=== PATIENT | female | born 1945 | race Caucasian/White ===

== ENCOUNTER 2018-06-10 13:25 | Emergency (ER) | payer MEDICAID, MEDICARE, OTHER ==
[~2018-06-10] VITALS: Ht 152.4 cm; Wt 66.2 kg
[2018-06-10] MEDS ORDERED: ONDANSETRON 4 MG/2 ML (SDV) Z0FRAN ONE (13:31)
[2018-06-10] MEDS ORDERED: morphine PF (DURAMORPH) 10 MG/10 ML AMP IV ONE (14:00)
[2018-06-10] MEDS ORDERED: NS IV 1000 ML 1,000 ML IV SCH ×2 (14:00→15:45)
[2018-06-10] MEDS ORDERED: ONDANSETRON 4 MG/2 ML (SDV) Z0FRAN IVP ONE ×2 (14:00→14:15)
[2018-06-10] MEDS ORDERED: morphine INJ 10 MG/ML 1ML (SYR OR VIAL) ONE (14:02)
[2018-06-10] MEDS ORDERED: morphine INJ 10 MG/ML 1ML (SYR OR VIAL) IVP STA ×2 (14:03→17:13)
[2018-06-10 14:10] LABS: BASOPHILS % (AUTO) 0 % (0-10); EOSINOPHILS % (AUTO) 0 % (0-10); HEMATOCRIT 42 % (35-52); HEMOGLOBIN 13.6 G/DL (11.5-16.0); LYMPHOCYTES # (AUTO) 1.3 X 10^3 (1.0-4.0); LYMPHOCYTES % (AUTO) 10 % (12-44); MEAN CORPUSCULAR HEMOGLOBIN 31 PG (25-34); MEAN CORPUSCULAR HGB CONC 32 G/DL (32-36); MEAN CORPUSCULAR VOLUME 94 FL (80-99); MEAN PLATELET VOLUME 11.1 FL (7.4-10.4); MONOCYTES # (AUTO) 0.6 X 10^3 (0.0-1.0); MONOCYTES % (AUTO) 4 % (0-12); NEUTROPHILS % (AUTO) 85 % (42-75); PLATELET COUNT 356 10^3/uL (130-400); RED CELL DISTRIBUTION WIDTH 13.6 % (10.0-14.5); WHITE BLOOD COUNT 12.9 10^3/uL (4.3-11.0)
[2018-06-10 14:24] LABS: BUN/CREATININE RATIO 11; CALCIUM 10.6 MG/DL (8.5-10.1); CARBON DIOXIDE 16 MMOL/L (21-32); CHLORIDE 96 MMOL/L (98-107); CREATININE SERUM 0.72 MG/DL (0.60-1.30); GFR ESTIMATED > 60; GLUCOSE 159 MG/DL (70-105); SODIUM 137 MMOL/L (135-145)
[2018-06-10 14:25] LABS: LIPASE 23 U/L (8-78)
--- NOTE | 2018-06-10 14:45 | ED GI ---
General Chief Complaint: Abdominal/GI Problems Stated Complaint: VOMITING Nursing Triage Note: Patient reports nausea, vomiting, diarrhea, and generalized aches since yesterday evening. She states she recently completed a course of antibiotics for a UTI. Sepsis Screen: No Definite Risk Source of Information: Patient Exam Limitations: No Limitations History of Present Illness Date Seen by Provider: Jun 10, 2018 Time Seen by Provider: 13:10 Initial Comments Patient is a 72-year-old female presents with intermittent abdominal pain, nausea vomiting with diarrhea of the past 24 hours. Patient has vomited multiple times today and has had loose stool stools. Reports generally fatigue, weakness, dizziness, lightheadedness, body aches chills. Denies fever. No hematemesis, coffee-ground emesis, blood in stools or dark tarry stools. Recently completed antibiotics for treatment of urinary tract infection. Denies dysuria at this time. Patient also reports exacerbation of chronic back pain from vomiting. No history of kidney stones. No other acute symptoms or complaints. Timing/Duration: 24 Hours Severity/Quality: Moderate Location: Unknown (LOWER) Radiation: No Radiation Activities at Onset: Activity Modifying Factors: Improves With Vomiting Associated Symptoms: Back Pain Allergies and Home Medications Allergies Coded Allergies: No Known Drug Allergies (Unverified , 06/10/18) Patient Home Medication List Home Medication List Reviewed: Yes Review of Systems Review of Systems Constitutional: see HPI EENTM: See HPI Respiratory: See HPI Cardiovascular: See HPI Gastrointestinal: See HPI Genitourinary: See HPI Musculoskeletal: see HPI Skin: see HPI Endocrine: See HPI Hematologic/Lymphatic: See HPI All Other Systems Reviewed Negative Unless Noted: Yes Past Wmwakxz-Xtfeik-Ssgdnn Hx Patient Social History Alcohol Use: Rarely Uses Alcohol Beverage of Choice: Other Recreational Drug Use: Yes Recent Foreign Travel: No Contact w/Someone Who Travel: No Recent Infectious Disease Expo: No Physical Exam Vital Signs Vital Signs - First Documented 06/10/18 13:52 Temp 97.5 Pulse 75 Resp 14 B/P (MAP) 159/74 (102) Pulse Ox 98 O2 Delivery Room Air Capillary Refill : Less Than 3 Seconds Height/Weight/BMI Height: 5'0" Weight: 146lbs. oz. 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, no motor/sensory deficits, oriented x 3 Skin: normal color Progress/Results/Core Measures Results/Orders Lab Results Laboratory Tests Test 06/10/18 13:39 06/10/18 15:15 Range/Units White Blood Count 12.9 H 4.3-11.0 10^3/uL Red Blood Count 4.45 4.35-5.85 10^6/uL Hemoglobin 13.6 11.5-16.0 G/DL Hematocrit 42 35-52 % Mean Corpuscular Volume 94 80-99 FL Mean Corpuscular Hemoglobin 31 25-34 PG Mean Corpuscular Hemoglobin Concent 32 32-36 G/DL Red Cell Distribution Width 13.6 10.0-14.5 % Platelet Count 356 130-400 10^3/uL Mean Platelet Volume 11.1 H 7.4-10.4 FL Neutrophils (%) (Auto) 85 H 42-75 % Lymphocytes (%) (Auto) 10 L 12-44 % Monocytes (%) (Auto) 4 0-12 % Eosinophils (%) (Auto) 0 0-10 % Basophils (%) (Auto) 0 0-10 % Neutrophils # (Auto) 11.0 H 1.8-7.8 X 10^3 Lymphocytes # (Auto) 1.3 1.0-4.0 X 10^3 Monocytes # (Auto) 0.6 0.0-1.0 X 10^3 Eosinophils # (Auto) 0.0 0.0-0.3 10^3/uL Basophils # (Auto) 0.0 0.0-0.1 10^3/uL Sodium Level 137 135-145 MMOL/L Potassium Level 5.0 3.6-5.0 MMOL/L Chloride Level 96 L 98-107 MMOL/L Carbon Dioxide Level 16 L 21-32 MMOL/L Anion Gap 25 H 5-14 MMOL/L Blood Urea Nitrogen 8 7-18 MG/DL Creatinine 0.72 0.60-1.30 MG/DL Estimat Glomerular Filtration Rate > 60 BUN/Creatinine Ratio 11 Glucose Level 159 H 70-105 MG/DL Calcium Level 10.6 H 8.5-10.1 MG/DL Troponin T 6 <=10 NG/L Lipase 23 8-78 U/L Urine Color YELLOW Urine Clarity CLEAR Urine pH 6.5 5-9 Urine Specific [place] 1.015 L 1.016-1.022 Urine Protein 2+ H NEGATIVE Urine Glucose (UA) NEGATIVE NEGATIVE Urine Ketones 1+ H NEGATIVE Urine Nitrite NEGATIVE NEGATIVE Urine Bilirubin NEGATIVE NEGATIVE Urine Urobilinogen 0.2 NORMAL MG/DL Urine Leukocyte Esterase NEGATIVE NEGATIVE Urine RBC (Auto) NEGATIVE NEGATIVE Urine RBC 0-2 /HPF Urine WBC 0-2 /HPF Urine Squamous Epithelial Cells 2-5 /HPF Urine Crystals NONE /LPF Urine Bacteria FEW H /HPF Urine Casts NONE /LPF Urine Mucus SMALL H /LPF Urine Culture Indicated NO My Orders Orders - KATHERINE HERRERA DO Ondansetron Injection (Zofran Injectio (06/10/18 13:31) Cbc With Automated Diff (06/10/18 13:55) Basic Metabolic Panel (06/10/18 13:55) Lipase (06/10/18 13:55) Ua Culture If Indicated (06/10/18 13:55) Ns Iv 1000 Ml (Sodium Chloride 0.9%) (06/10/18 14:00) Ondansetron Injection (Zofran Injectio (06/10/18 14:00) Morphine Injection (Morphine Injection (06/10/18 14:03) Ondansetron Injection (Zofran Injectio (06/10/18 14:15) Morphine Injection (Morphine Injection (06/10/18 14:02) Ct Abdomen/Pelvis W (06/10/18 14:46) Iohexol Injection (Omnipaque 350 Mg/Ml 1 (06/10/18 15:00) Received Contrast (Hold Metformin- Contr (06/10/18 15:00) Sodium Chloride Flush (Catheter Flush Sy (06/10/18 15:00) Ns (Ivpb) (Sodium Chloride 0.9% Ivpb Bag (06/10/18 15:00) Troponin T (06/10/18 15:39) Famotidine Injection (Pepcid Injection) (06/10/18 15:45) Ns Iv 1000 Ml (Sodium Chloride 0.9%) (06/10/18 15:45) Ng/Feeding Tube Insertertion (06/10/18 16:39) Medications Given in ED Current Medications Medications Dose Ordered Sig/Shaylee Route Start Time Stop Time Status Last Admin Dose Admin Famotidine 20 mg ONCE ONCE IVP 06/10/18 15:45 06/10/18 15:46 DC 06/10/18 16:10 20 MG Iohexol 100 ml ONCE ONCE IV 06/10/18 15:00 06/10/18 15:08 DC 06/10/18 15:34 100 ML Ondansetron HCl 4 mg ONCE ONCE IVP 06/10/18 14:00 06/10/18 14:01 DC 06/10/18 14:10 4 MG Ondansetron HCl 4 mg ONCE ONCE IVP 06/10/18 14:15 06/10/18 14:16 DC 06/10/18 14:10 4 MG Sodium Chloride 10 ml NEEDED PRN IV 06/10/18 15:00 06/10/18 15:34 10 ML Sodium Chloride 100 ml ONCE ONCE IV 06/10/18 15:00 06/10/18 15:08 DC 06/10/18 15:35 60 ML Vital Signs/I&O 06/10/18 13:52 Temp 97.5 Pulse 75 Resp 14 B/P (MAP) 159/74 (102) Pulse Ox 98 O2 Delivery Room Air Blood Pressure Mean: 102 Departure Communication (Admissions) CT finder's indicative of acute small bowel obstruction. NG tube placed. Dr. Cary salesperson [employer] for [facility] accepts patient to [facility] facility. NG tube to placed prior to departure. Impression Primary Impression: Small bowel obstruction Disposition: XFER SHT-TRM HOSP Condition: Stable Transfer Method of Transfer: EMS Departure-Patient Inst. Referrals: DIDI DE LA CRUZ MD (PCP/Family) Primary Care Physician KATHERINE HERRERA DO Jun 10, 2018 14:45
[2018-06-10] MEDS ORDERED: HOLD METFORMIN - RECEIVED CONTRAST 20 ML VIAL IV SCH (15:00)
[2018-06-10] MEDS ORDERED: CATHETER FLUSH 10 ML SYR IV PRN (15:00)
[2018-06-10] MEDS ORDERED: NS 100 ML (IVPB) BAG IV ONE (15:00)
[2018-06-10] MEDS ORDERED: IOHEXOL 350 MG/ML 100 ML (OMNIPAQUE 350) VIAL IV ONE (15:00)
[2018-06-10] MEDS ORDERED: FAMOTIDINE 20MG/2ML IV (PEPCID) IVP ONE (15:45)
[2018-06-10 15:51] LABS: BILIRUBIN,URINE NEGATIVE (NEGATIVE); CLARITY,URINE CLEAR; COLOR,URINE YELLOW; GLUCOSE, URINE (UA) NEGATIVE (NEGATIVE); KETONES,URINE 1+ (NEGATIVE); LEUKOCYTE ESTERASE ,URINE NEGATIVE (NEGATIVE); NITRITE,URINE NEGATIVE (NEGATIVE); PH,URINE 6.5 (5-9); PROTEIN,URINE 2+ (NEGATIVE); UROBILINOGEN,URINE 0.2 MG/DL (NORMAL)
[2018-06-10 15:52] LABS: BACTERIA,URINE FEW /HPF; RBC,URINE 0-2 /HPF; WBC,URINE 0-2 /HPF
--- NOTE | 2018-06-10 16:09 | Diagnostic Imaging Report ---
PROCEDURE: CT abdomen and pelvis with contrast. TECHNIQUE: Multiple contiguous axial images were obtained through the abdomen and pelvis after administration of intravenous contrast. Auto Exposure Controls were utilized during the CT exam to meet ALARA standards for radiation dose reduction. INDICATION: Upper abdominal pain and vomiting. COMPARISON: no prior studies are available for comparison. FINDINGS: The lung bases are clear. No discrete liver mass is identified. The gallbladder is surgically absent. No biliary ductal dilatation is seen. The pancreas and spleen are unremarkable. No adrenal mass is detected. Left kidney is unremarkable. There is some cortical scarring involving the right kidney which also contains a tiny low-density, too small to characterize but most likely a cyst. Aorta is calcified but nonaneurysmal. No central retroperitoneal or mesenteric lymphadenopathy is seen. There is moderate fluid-filled distention involving small bowel loops in the central abdomen. There does appear to be transition to normal caliber bowel loops at the level of the mid jejunum. The focal transition appears to be in the midline of the mid pelvis, exact etiology indeterminate. No free fluid or fluid collection is seen. There is no free air. The colon is decompressed. There appear to be postsurgical changes in the sigmoid. The partially filled urinary bladder is unremarkable. IMPRESSION: Findings consistent with small bowel obstruction with focal transition in the region of the mid jejunum at the midline of the mid pelvis. No free air, fluid collection or abscess is detected. Dictated by: Dictated on workstation # [id number]
--- NOTE | 2018-06-10 16:50 | NUR ---
Patient requests to be transferred to the [facility] as it would be closer to her daughter who lives in [place].
[2018-06-10] MEDS ORDERED: LIDOCAINE UROJET 2% GEL 10 ML PKG ONE (16:57)
--- NOTE | 2018-06-10 17:45 | NUR ---
2 unsuccessful attempts at NG tube placement, patient refuses further attempts at this time. Dr. Lane notified.
[2018-06-10 18:05] VITALS: BP 145/82
== END 2018-06-10 18:13 | disposition short-term general hospital (02) ==
LOC: EDUNIT# 13:25 → ER FS 13:27
DX: K56.609 Unspecified intestinal obstruction, unspecified as to partial versus complete obstruction (principal); Z87.440 Personal history of urinary (tract) infections
CPT/HCPCS: 36415; 74177; 80048; 81000; 83690; 84484; 85025; 96361; 96374; 96375; 96376

== ENCOUNTER 2019-07-31 07:23 | Inpatient (IN) | payer MEDICARE ==
[~2019-07-31] VITALS: Ht 152.4 cm; Wt 72.5 kg
--- OUTSIDE RECORDS SUMMARY | 2019-07-31 07:28 | XMS REPORT | Continuity of Care Document ---
Author Organization Unknown Address Unknown Phone Unavailable Allergies Active Description Code Type Severity Reaction Onset Reported/Identified Relationship to Patient Clinical Status Yes No Known Drug Allergies [id number] Drug Allergy Unknown N/A 06/10/2018 Medications There is no data. Problems Date Dx Coded Attending Type Code Diagnosis Diagnosed By 06/10/2018 KATHERINE HERRERA DO, Ot K56.609 UNSP INTESTNL OBST, UNSP TO PARTIAL V 06/10/2018 KATHERINE HERRERA DO Ot R10.30 LOWER ABDOMINAL PAIN, UNSPECIFIED 06/10/2018 KATHERINE HERRERA DO, Ot Z87.440 PERSONAL HISTORY OF URINARY (TRACT) INFE 06/14/2018 KATHERINE HERRERA DO, Ot K56.609 UNSP INTESTNL OBST, UNSP TO PARTIAL V 06/14/2018 KATHERINE HERRERA DO, Ot R10.30 LOWER ABDOMINAL PAIN, UNSPECIFIED 06/14/2018 KATHERINE HERRERA DO, Ot Z87.440 PERSONAL HISTORY OF URINARY (TRACT) INFE Procedures There is no data. Results Test Result Range Complete blood count (CBC) with automate d white blood cell (WBC) differential - 06/10/18 13:39 Blood leukocytes automated count (number/volume) 12.9 10*3/uL 4.3-11.0 Blood erythrocytes automated count (number/volume) 4.45 10*6/uL 4.35-5.85 Venous blood hemoglobin measurement (mass/volume) 13.6 g/dL 11.5-16.0 Blood hematocrit (volume fraction) 42 % 35-52 Automated erythrocyte mean corpuscular volume 94 [ foz_us] 80-99 Automated erythrocyte mean corpuscular h emoglobin (mass per erythrocyte) 31 pg 25-34 Automated erythrocyte mean corpuscular h emoglobin concentration measurement (mass/volume) 32 g/dL 32-36 Automated erythrocyte distribution width ratio 13. 6 % 10.0- 14.5 Automated blood platelet count (count/volume) 356 10*3/uL 130-400 Automated blood platelet mean volume measurement 11.1 [foz_us] 7.4-10.4 Automated blood neutrophils/100 leukocytes 85 % 42-75 Automated blood lymphocytes/100 leukocytes 10 % 12-44 Blood monocytes/100 leukocytes 4 % 0-12 Automated blood eosinophils/100 leukocytes 0 % 0-10 Automated blood basophils/100 leukocytes 0 % 0-10 Blood neutrophils automated count (number/volume) 11.0 10*3 1.8-7.8 Blood lymphocytes automated count (number/volume) 1.3 10*3 1.0-4.0 Blood monocytes automated count (number/volume) 0. 6 10*3 0.0-1.0 Automated eosinophil count 0.0 10*3/uL 0 .0-0.3 Automated blood basophil count (count/volume) 0.0 10*3/uL 0.0-0.1 Whole blood basic metabolic panel - 05/23 11/10 13:39 Serum or plasma sodium measurement (moles/volume) 137 mmol/L 135-145 Serum or plasma potassium measurement (moles/volume) 5.0 mmol/L 3.6-5.0 Serum or plasma chloride measurement (moles/volume) 96 mmol/L 98-107 Carbon dioxide 16 mmol/L 21-32 Serum or plasma anion gap determination (moles/volume) 25 mmol/L 5-14 Serum or plasma urea nitrogen measurement (mass/volume ) 8 mg/dL 7-18 Serum or plasma creatinine measurement (mass/volume) 0.72 mg/dL 0.60-1.30 Serum or plasma urea nitrogen/creatinine mass ratio 11 NRG Serum or plasma creatinine measurement w ith calculation of estimated glomerular filtration rate > NRG Serum or plasma glucose measurement (mass/volume) 159 mg/dL 70-105 Serum or plasma calcium measurement (mass/volume) 10.6 mg/dL 8.5-10.1 Lipase - 06/10/18 13:39 Lipase 23 U/L 8-78 TROPONIN T - 06/10/18 13:39 TROPONIN T 6 % <=10 Complete urinalysis with reflex to cultu re - 06/10/18 15:15 Urine color determination YELLOW NRG Urine clarity determination CLEAR NR G Urine pH measurement by test strip 6.5 5-9 Specific gravity of urine by test strip 1.015 1.016-1.022 Urine protein assay by test strip, semi-quantitative 2+ NEGATIVE Urine glucose detection by automated test strip NE GATIVE NEGATIVE Erythrocytes detection in urine sediment by light micr oscopy NEGATIVE NEGATIVE Urine ketones detection by automated test strip 1+ NEGATIVE Urine nitrite detection by test strip NEGATIVE NEGATIVE Urine total bilirubin detection by test strip NEGA TIVE NEGATIVE Urine urobilinogen measurement by automated test strip (mass/volume) 0.2 mg/dL NORMAL Urine leukocyte esterase detection by dipstick NEG ATIVE NEGATIVE Automated urine sediment erythrocyte cou nt by microscopy (number/high power field) [HPF] NRG Automated urine sediment leukocyte count by microscopy (number/high power field) [HPF] NRG Bacteria detection in urine sediment by light microsco py FEW NRG Squamous epithelial cells detection in u rine sediment by light microscopy 2-5 NRG Crystals detection in urine sediment by light microsco py NONE NRG Casts detection in urine sediment by light microscopy NONE NRG Mucus detection in urine sediment by light microscopy SMALL NRG Complete urinalysis with reflex to culture NO NRG Encounters ACCT No. Visit Date/Time Discharge Status Pt. Type Provider Facility Loc./Unit Complaint [id number] 06/10/2018 13:27:00 019 18:13:00 DIS Emergency HERRERA KATHERINE SNOW [facility] ER FS VOMITING [id number] 07/31/2019 09:00:00 P ERIKA DE LA CRUZ MD, DIDI Hernandez [facility] RAD BREAST MASS,LT
[2019-07-31] MEDS ORDERED: LACTATED RINGERS 1,000 ML IV STA (07:43)
[2019-07-31] MEDS ORDERED: fentaNYL INJECTION 100 MCG/2 ML AMP IVP STA (07:43)
[2019-07-31] MEDS ORDERED: ONDANSETRON 4 MG/2 ML (SDV) Z0FRAN IVP ONE (07:45)
[2019-07-31 07:54] LABS: BASOPHILS % (AUTO) 0 % (0-10); EOSINOPHILS % (AUTO) 0 % (0-10); HEMATOCRIT 40 % (35-52); HEMOGLOBIN 13.5 G/DL (11.5-16.0); LYMPHOCYTES # (AUTO) 1.3 X 10^3 (1.0-4.0); LYMPHOCYTES % (AUTO) 12 % (12-44); MEAN CORPUSCULAR HEMOGLOBIN 31 PG (25-34); MEAN CORPUSCULAR HGB CONC 34 G/DL (32-36); MEAN CORPUSCULAR VOLUME 92 FL (80-99); MEAN PLATELET VOLUME 10.8 FL (7.4-10.4); MONOCYTES # (AUTO) 0.8 X 10^3 (0.0-1.0); MONOCYTES % (AUTO) 7 % (0-12); NEUTROPHILS # (AUTO) 9.3 X 10^3 (1.8-7.8); NEUTROPHILS % (AUTO) 81 % (42-75); PLATELET COUNT 388 10^3/uL (130-400); RED CELL DISTRIBUTION WIDTH 14.1 % (10.0-14.5); WHITE BLOOD COUNT 11.6 10^3/uL (4.3-11.0)
--- NOTE | 2019-07-31 08:10 | ED Abdominal Pain ---
General Stated Complaint: CONSTIPATION;VOMITING Source of Information: Patient Exam Limitations: No Limitations History of Present Illness Date Seen by Provider: Jul 31, 2019 Time Seen by Provider: 07:38 Initial Comments Here with report of left-sided and lower abdominal pain. Has not had a bowel movement for 2 days and has started vomiting since yesterday evening. States that she is not is vomiting bile. She has not been able to eat or drink anything due to this. Does have history of small bowel obstruction in the past and has had previous surgeries. Previous workup concerning for possible adhesions or twisting per the patient as discussed with surgeon at [facility] in [place], [place] last year. She was admitted at that time for small bowel obstruction and spent a few days in the hospital. Obstruction spontaneously resolved during the hospital stay and so she did not pursue surgery. She is due to have breast biopsy here today on the left breast. Denies fever or chills. Last bowel movement 2 days ago and had small soft stool. Last normal bowel movement was 4 days ago. States that she is not passing gas. Denies upper respiratory symptoms. No contact concerns for COVID-19. Timing/Duration: 1-2 Days Severity/Quality: Moderate, Aching, Cramping Location: LUQ, LLQ Radiation: No Radiation Activities at Onset: None Modifying Factors: Worsens With Eating; Improves With Vomiting Associated Symptoms: No Back Pain, No Chest Pain, No Fever/Chills; Nausea/Vom iting; No Shortness of Air, No Swelling/Mass in Abdomen; Weakness Allergies and Home Medications Allergies Coded Allergies: No Known Drug Allergies (Unverified , 06/10/18) Patient Home Medication List Home Medication List Reviewed: Yes Review of Systems Review of Systems Constitutional: see HPI EENTM: No Symptoms Reported Respiratory: Denies Cough, Denies Shortness of Air Cardiovascular: Denies Chest Pain, Denies Edema Gastrointestinal: Abdominal Pain, Constipated, Nausea, Vomiting Genitourinary: No Symptoms Reported Musculoskeletal: no symptoms reported Skin: no symptoms reported Psychiatric/Neurological: No Symptoms Reported All Other Systems Reviewed Negative Unless Noted: Yes Past Kmrxeqx-Iybscu-Ddaskb Hx Past Med/Social Hx: Reviewed Nursing Past Med/Soc Hx Patient Social History Alcohol Use: Denies Use Alcohol Beverage of Choice: Other Recreational Drug Use: No Smoking Status: Never a Smoker 2nd Hand Smoke Exposure: No Recent Hopitalizations: No Seasonal Allergies Seasonal Allergies: No Past Medical History Surgeries: Yes Gallbladder, Hysterectomy, Tonsillectomy Respiratory: No Cardiac: Yes Hypertension Neurological: No Genitourinary: No Gastrointestinal: No Musculoskeletal: Yes Arthritis, Chronic Back Pain Endocrine: No HEENT: No Cancer: Yes (Chemo in 2003, currently in remission.) Lymphoma Did You Recieve Any Treatments: Yes What Type of Treatment Did You: Chemotherapy Psychosocial: No Integumentary: No Blood Disorders: No Family Medical History Reviewed Nursing Family Hx Physical Exam Vital Signs Vital Signs - First Documented 07/31/19 07:30 Temp 36.6 Pulse 84 Resp 18 B/P (MAP) 196/111 (139) Pulse Ox 95 O2 Delivery Room Air Capillary Refill : Height/Weight/BMI Height: 5'0" Weight: 146lbs. oz. 66.993665ou; BMI Method:Stated General Appearance: WD/WN, no apparent distress HEENT: PERRL/EOMI, pharynx normal Neck: full range of motion, supple Respiratory: lungs clear, normal breath sounds Cardiovascular: regular rate, rhythm, no murmur Gastrointestinal: soft, distended, tenderness; No mass (low admission.) Extremities: non-tender, normal inspection Back: normal inspection, no CVA tenderness, no vertebral tenderness Neurologic/Psychiatric: alert, oriented x 3 Skin: normal color, warm/dry Progress/Results/Core Measures Results/Orders Lab Results Laboratory Tests Test 07/31/19 07:40 07/31/19 08:05 Range/Units White Blood Count 11.6 H 4.3-11.0 10^3/uL Red Blood Count 4.32 L 4.35-5.85 10^6/uL Hemoglobin 13.5 11.5-16.0 G/DL Hematocrit 40 35-52 % Mean Corpuscular Volume 92 80-99 FL Mean Corpuscular Hemoglobin 31 25-34 PG Mean Corpuscular Hemoglobin Concent 34 32-36 G/DL Red Cell Distribution Width 14.1 10.0-14.5 % Platelet Count 388 130-400 10^3/uL Mean Platelet Volume 10.8 H 7.4-10.4 FL Neutrophils (%) (Auto) 81 H 42-75 % Lymphocytes (%) (Auto) 12 12-44 % Monocytes (%) (Auto) 7 0-12 % Eosinophils (%) (Auto) 0 0-10 % Basophils (%) (Auto) 0 0-10 % Neutrophils # (Auto) 9.3 H 1.8-7.8 X 10^3 Lymphocytes # (Auto) 1.3 1.0-4.0 X 10^3 Monocytes # (Auto) 0.8 0.0-1.0 X 10^3 Eosinophils # (Auto) 0.0 0.0-0.3 10^3/uL Basophils # (Auto) 0.0 0.0-0.1 10^3/uL Sodium Level 139 135-145 MMOL/L Potassium Level 4.2 3.6-5.0 MMOL/L Chloride Level 105 98-107 MMOL/L Carbon Dioxide Level 21 21-32 MMOL/L Anion Gap 13 5-14 MMOL/L Blood Urea Nitrogen 8 7-18 MG/DL Creatinine 0.81 0.60-1.30 MG/DL Estimat Glomerular Filtration Rate > 60 BUN/Creatinine Ratio 10 Glucose Level 129 H 70-105 MG/DL Calcium Level 9.4 8.5-10.1 MG/DL Corrected Calcium 9.2 8.5-10.1 MG/DL Magnesium Level 2.0 1.6-2.4 MG/DL Total Bilirubin 1.1 H 0.1-1.0 MG/DL Aspartate Amino Transf (AST/SGOT) 25 5-34 U/L Alanine Aminotransferase (ALT/SGPT) 20 0-55 U/L Alkaline Phosphatase 116 40-136 U/L C-Reactive Protein High Sensitivity 0.40 0.00-0.50 MG/DL Total Protein 7.0 6.4-8.2 GM/DL Albumin 4.2 3.2-4.5 GM/DL Urine Color YELLOW Urine Clarity CLEAR Urine pH 6.0 5-9 Urine Specific Mauldin 1.025 H 1.016-1.022 Urine Protein 1+ H NEGATIVE Urine Glucose (UA) NEGATIVE NEGATIVE Urine Ketones NEGATIVE NEGATIVE Urine Nitrite NEGATIVE NEGATIVE Urine Bilirubin NEGATIVE NEGATIVE Urine Urobilinogen 0.2 < = 1.0 MG/DL Urine Leukocyte Esterase NEGATIVE NEGATIVE Urine RBC (Auto) 1+ H NEGATIVE Urine RBC 0-2 /HPF Urine WBC NONE /HPF Urine Squamous Epithelial Cells RARE /HPF Urine Crystals PRESENT H /LPF Urine Amorphous Sediment RARE SHERYL URATES H /LPF Urine Bacteria TRACE /HPF Urine Casts NONE /LPF Urine Mucus MODERATE H /LPF Urine Culture Indicated NO My Orders Orders - MAURICIO MENEZES MD Fentanyl Injection (Sublimaze Injection (07/31/19 07:43) Ondansetron Injection (Zofran Injectio (07/31/19 07:45) Lactated Ringers (Lr 1000 Ml Iv Solution (07/31/19 07:43) Ed Iv/Invasive Line Start (07/31/19 07:43) Cbc With Automated Diff (07/31/19 07:43) Comprehensive Metabolic Panel (07/31/19 07:43) Hs C Reactive Protein (07/31/19 07:43) Magnesium (07/31/19 07:43) Ua Culture If Indicated (07/31/19 07:43) Ct Abdomen/Pelvis W (07/31/19 08:51) Iohexol Injection (Omnipaque 350 Mg/Ml 1 (07/31/19 09:00) Received Contrast (Hold Metformin- Contr (07/31/19 09:00) Sodium Chloride Flush (Catheter Flush Sy (07/31/19 09:00) Ns (Ivpb) (Sodium Chloride 0.9% Ivpb Bag (07/31/19 09:00) Medications Given in ED Current Medications Medications Dose Ordered Sig/Shaylee Route Start Time Stop Time Status Last Admin Dose Admin Iohexol 100 ml ONCE ONCE IV 07/31/19 09:00 07/31/19 09:06 DC 07/31/19 09:17 80 ML Ondansetron HCl 4 mg ONCE ONCE IVP 07/31/19 07:45 07/31/19 07:46 DC 07/31/19 07:57 4 MG Sodium Chloride 100 ml ONCE ONCE IV 07/31/19 09:00 07/31/19 09:06 DC 07/31/19 09:17 80 ML Vital Signs/I&O 07/31/19 07:30 Temp 36.6 Pulse 84 Resp 18 B/P (MAP) 196/111 (139) Pulse Ox 95 O2 Delivery Room Air Progress Progress Note : Progress Note Seen and evaluated. IV, labs, UA, LR 1 L bolus ordered. Anticipate CT abdomen and pelvis pending labs. Monitor patient. 0852: CT abdomen pelvis ordered after labs reviewed. Monitor patient. 0958: Findings consistent with small bowel obstruction. I discussed the case with Dr. Acosta and she accepts patient for admission, inpatient status. I have consulted Dr. Clark and he accepts patient in consult. We will continue IV fluids and maintained nothing by mouth status for right now until evaluated by surgeon. Discussed with patient who agrees with plan. Diagnostic Imaging Diagonstic Imaging: CT Plain Films/CT/US/NM/MRI: abdomen, pelvis Comments NAME: CHARLES PEREA [facility] REC#: [id number] PT STATUS: REG ER : 1945 PHYSICIAN: MAURICIO MENEZES MD ADMIT DATE: 07/31/19/ER Draft Date of Exam:07/31/19 CT ABDOMEN/PELVIS W EXAMINATION: CT Abdomen and Pelvis with intravenous contrast. TECHNIQUE: Multiple contiguous axial images were obtained through the abdomen and pelvis after the uneventful administration of intravenous contrast. All CT scans use one or more of the following dose optimizing techniques: automated exposure control, MA and/or KvP adjustment based on a patient size and exam type, or iterative reconstruction. HISTORY: Constipation. Vomiting. Abdominal pain. History of lymphoma 10 years ago. COMPARISON: CT abdomen and pelvis of 06/10/2018. FINDINGS: The heart is unremarkable. Subsegmental atelectasis is noted in the right lung base. Prominent interstitial markings are noted in the lung bases, likely representing scarring. No focal consolidation or mass. A small hiatal hernia is present. Cortical thinning is noted in the superior pole and mid aspect of the right kidney. No suspicious renal masses are identified. No evidence of hydronephrosis or nephrolithiasis. The urinary bladder is nondistended. The liver, spleen, pancreas, and adrenal glands have a normal appearance. The gallbladder is surgically absent. There is no pathologically enlarged mesenteric or retroperitoneal adenopathy. Dilated loops of small bowel are visualized in the lower abdomen right of midline. Surrounding inflammatory changes are seen in the mesentery of the right lower quadrant. A small amount of stool is seen in the colon. Scattered diverticuli are visualized throughout the colon without evidence of acute diverticulitis. Partial bowel resection is noted in the sigmoid colon. There is no free fluid or free air. No acute osseous abnormalities. There is calcified aortic and iliac atherosclerotic plaque without evidence of aneurysm. There is no free air, loculated collection, or adenopathy in the pelvis. IMPRESSION: 1. Dilated loops of small bowel in the right lower quadrant which may represent an early small bowel obstruction. Associated inflammatory changes are seen in the mesentery of the right lower quadrant. No evidence of free fluid or free air. 2. Scattered diverticuli in the colon without evidence of acute diverticulitis. 3. Cortical thinning in the superior pole and mid aspect of the right kidney, likely representing sequelae of prior infection or ischemia. No evidence of hydronephrosis or renal calculi. Dictated on workstation # [id number] Dict: 07/31/1934 Trans: 07/31/1942 [id number] Interpreted by: DONELL SALGADO DO Electronically signed by: Reviewed: Reviewed by Me Departure Communication (Admissions) Time/Spoke to Admitting Phy: 09:50 Time/Spoke to Consulting Phy: 09:58 Impression Primary Impression: Small bowel obstruction Disposition: ADMITTED INPATIENT Condition: Stable Admissions Decision to Admit Reason: Admit from ER (General) Decision to Admit/Date: Jul 31, 2019 Time/Decision to Admit Time: 09:50 Departure-Patient Inst. Referrals: DIDI DE LA CRUZ MD (PCP/Family) Primary Care Physician MAURICIO MENEZES MD Jul 31, 2019 08:10
[2019-07-31 08:11] LABS: ALBUMIN 4.2 GM/DL (3.2-4.5); CHLORIDE 105 MMOL/L (98-107); POTASSIUM 4.2 MMOL/L (3.6-5.0); SODIUM 139 MMOL/L (135-145)
[2019-07-31 08:12] LABS: CALCIUM 9.4 MG/DL (8.5-10.1)
[2019-07-31 08:13] LABS: GLUCOSE 129 MG/DL (70-105)
[2019-07-31 08:14] LABS: CARBON DIOXIDE 21 MMOL/L (21-32)
[2019-07-31 08:15] LABS: BILIRUBIN,TOTAL 1.1 MG/DL (0.1-1.0)
[2019-07-31 08:17] LABS: BILIRUBIN,URINE NEGATIVE (NEGATIVE); CLARITY,URINE CLEAR; COLOR,URINE YELLOW; GLUCOSE, URINE (UA) NEGATIVE (NEGATIVE); KETONES,URINE NEGATIVE (NEGATIVE); LEUKOCYTE ESTERASE ,URINE NEGATIVE (NEGATIVE); NITRITE,URINE NEGATIVE (NEGATIVE); PROTEIN,URINE 1+ (NEGATIVE)
[2019-07-31 08:17] LABS: ALKALINE PHOSPHATASE 116 U/L (40-136); CREATININE SERUM 0.81 MG/DL (0.60-1.30); GFR ESTIMATED > 60
[2019-07-31 08:18] LABS: BUN/CREATININE RATIO 10
[2019-07-31 08:20] LABS: ALANINE AMINOTRANSFERASE 20 U/L (0-55)
[2019-07-31 08:28] LABS: BACTERIA,URINE TRACE /HPF; RBC,URINE 0-2 /HPF; SQUAMOUS EPITHELIAL CELL,UR RARE /HPF
[2019-07-31 08:29] LABS: AMORPHOUS SEDIMENT,UR RARE AMOR URATES /LPF
[2019-07-31] MEDS ORDERED: HOLD METFORMIN - RECEIVED CONTRAST 20 ML VIAL IV SCH (09:00)
[2019-07-31] MEDS ORDERED: CATHETER FLUSH 10 ML SYR IV PRN (09:00)
[2019-07-31] MEDS ORDERED: NS 100 ML (IVPB) BAG IV ONE (09:00)
[2019-07-31] MEDS ORDERED: IOHEXOL 350 MG/ML 100 ML (OMNIPAQUE 350) VIAL IV ONE (09:00)
--- NOTE | 2019-07-31 09:43 | Diagnostic Imaging Report ---
EXAMINATION: CT Abdomen and Pelvis with intravenous contrast. TECHNIQUE: Multiple contiguous axial images were obtained through the abdomen and pelvis after the uneventful administration of intravenous contrast. All CT scans use one or more of the following dose optimizing techniques: automated exposure control, MA and/or KvP adjustment based on a patient size and exam type, or iterative reconstruction. HISTORY: Constipation. Vomiting. Abdominal pain. History of lymphoma 10 years ago. COMPARISON: CT abdomen and pelvis of 06/10/2018. FINDINGS: The heart is unremarkable. Subsegmental atelectasis is noted in the right lung base. Prominent interstitial markings are noted in the lung bases, likely representing scarring. No focal consolidation or mass. A small hiatal hernia is present. Cortical thinning is noted in the superior pole and mid aspect of the right kidney. No suspicious renal masses are identified. No evidence of hydronephrosis or nephrolithiasis. The urinary bladder is nondistended. The liver, spleen, pancreas, and adrenal glands have a normal appearance. The gallbladder is surgically absent. There is no pathologically enlarged mesenteric or retroperitoneal adenopathy. Dilated loops of small bowel are visualized in the lower abdomen right of midline. Surrounding inflammatory changes are seen in the mesentery of the right lower quadrant. A small amount of stool is seen in the colon. Scattered diverticuli are visualized throughout the colon without evidence of acute diverticulitis. Partial bowel resection is noted in the sigmoid colon. There is no free fluid or free air. No acute osseous abnormalities. There is calcified aortic and iliac atherosclerotic plaque without evidence of aneurysm. There is no free air, loculated collection, or adenopathy in the pelvis. IMPRESSION: 1. Dilated loops of small bowel in the right lower quadrant which may represent an early small bowel obstruction. Associated inflammatory changes are seen in the mesentery of the right lower quadrant. No evidence of free fluid or free air. 2. Scattered diverticuli in the colon without evidence of acute diverticulitis. 3. Cortical thinning in the superior pole and mid aspect of the right kidney, likely representing sequelae of prior infection or ischemia. No evidence of hydronephrosis or renal calculi. Dictated by: Dictated on workstation # [id number]
--- NOTE | 2019-07-31 10:49 | NUR ---
attempted to call report; nurse did not answer
--- NOTE | 2019-07-31 11:16 | NUR ---
attempted to call report; nurse did not answer
--- NOTE | 2019-07-31 11:30 | NUR ---
CHARLES PRABHAKAR admitted to room 411-1, with an admitting diagnosis of SBO, on 07/31/19 from ER via W/C, accompanied by STAFF.CHARLES PEREA introduced to surroundings, call light, bed controls, phone, TV, temperature control, lights, meal times, smoking policy, visitor policy, side rail policy, bathrooms and showers. Patient Rights given to patient in the handbook.CHARLES PEREA verbalizes understanding that [facility] is not responsible for the loss or damage to any personal effects or valuables that are kept in the patients posession during their hospitalization. The following Patient Care Plans were discussed with the PT: Discharge Planning, PAIN CONTROL,IV THERAPY, and TESTS AND PROCEDURES. CHARLES PEREA verbalizes understanding of Interdisciplinary Patient Education. Patient and/or family were informed about the Rapid Response Team and its purpose.
[2019-07-31] MEDS ORDERED: LACTATED RINGERS 1,000 ML IV ONE (11:36)
[2019-07-31] MEDS ORDERED: ONDANSETRON 4 MG/2 ML (SDV) Z0FRAN ONE (11:36)
[2019-07-31] MEDS ORDERED: fentaNYL INJECTION 100 MCG/2 ML AMP ONE (11:38)
[2019-07-31] MEDS: fentaNYL INJECTION 100 MCG/2 ML AMP IV PRN ×4 (11:49→20:32)
[2019-07-31] MEDS: ONDANSETRON 4 MG/2 ML (SDV) Z0FRAN IV PRN ×2 (11:50→17:46)
[2019-07-31] MEDS: LACTATED RINGERS 1,000 ML IV SCH ×2 (11:50→21:45)
[2019-07-31 12:06] VITALS: BP 172/83
--- OUTSIDE RECORDS SUMMARY | 2019-07-31 13:10 | XMS REPORT | Continuity of Care Document ---
Author Organization Unknown Address Unknown Phone Unavailable Allergies Active Description Code Type Severity Reaction Onset Reported/Identified Relationship to Patient Clinical Status Yes No Known Drug Allergies [id number] Drug Allergy Unknown N/A 06/10/2018 Medications There [...] Status Pt. Type Provider Facility Loc./Unit Complaint [id number] 06/10/2018 13:27:00 019 18:13:00 DIS Emergency HERRERA KATHERINE SNOW [facility] ER FS VOMITING [id number] 07/31/2019 09:00:00 P ERIKA DE LA CRUZ MD, DIDI Hernandez [facility] RAD BREAST MASS,LT
[2019-07-31] MEDS ORDERED: ATOR20TA66 PO (13:51)
[2019-07-31] MEDS ORDERED: HYDR-83 PO (13:51)
[2019-07-31] MEDS ORDERED: FOLI1TAB24 PO (13:51)
[2019-07-31] MEDS ORDERED: ASPI-983 PO (13:51)
[2019-07-31] MEDS ORDERED: MV-M1TAB20 PO (13:51)
[2019-07-31] MEDS ORDERED: CIDE500T PO (13:51)
[2019-07-31] MEDS ORDERED: MULT-1136 PO (13:51)
[2019-07-31] MEDS ORDERED: FAMO20TA5 PO (13:51)
[2019-07-31] MEDS ORDERED: VITA1TAB17 PO (13:51)
[2019-07-31] MEDS ORDERED: CLOP75TA28 PO (13:51)
[2019-07-31] MEDS ORDERED: LISI-552 PO (13:51)
--- NOTE | 2019-07-31 13:52 | NUR ---
SPOKE WITH THE PT (SHE HAD A MED LIST) AND WENT THRU THE EXT MED HISTORY PT SAYS SHE TAKES ALL HER OTC MEDICATION IN THE MORNING AND PRESCRIPTION MEDICATIONS IN THE EVENING OTC MEDS: MTV VIT B COMPLEX VIT D APPLE CIDER VINEGAR FOLIC ACID ASPIRIN 81
--- NOTE | 2019-07-31 14:20 | NUR ---
DR. VALENCIA HERE. REMINDED DR. VALENCIA PT. HAS BEEN OFF PLAVIX X 5 DAYS. AND HAS A HISTORY OF TIA'S.
--- NOTE | 2019-07-31 14:29 | Consultation - Surgery ---
History of Present Illness History of Present Illness Patient Consulted On(caitie/time) 07/31/19 14:23 Time Seen by Provider: 13:56 History of Present Illness Surgery asked to consult regarding PSBO. HPI per ED: Here with report of left-sided and lower abdominal pain. Has not had a bowel movement for 2 days and has started vomiting since yesterday evening. States that she is vomiting bile. She has not been able to eat or drink anything due to this. Does have history of small bowel obstruction in the past and has had previous surgeries. Previous workup concerning for possible adhesions or twisting per the patient as discussed with surgeon at [facility] in [place], [place] last year. She was admitted at that time for small bowel obstruction and spent a few days in the hospital. Obstruction spontaneously resolved during the hospital stay and so she did not pursue surgery. She is due to have breast biopsy here today on the left breast. Denies fever or chills. Last bowel movement 2 days ago and had small soft stool. Last normal bowel movement was 4 days ago. States that she is not passing gas. Denies upper respiratory symptoms. No contact concerns for COVID-19. Timing/Duration: 1-2 Days Severity/Quality: Moderate, Aching, Cramping Location: LUQ, LLQ Radiation: No Radiation Activities at Onset: None Modifying Factors: Worsens With Eating; Improves With Vomiting Associated Symptoms: No Back Pain, No Chest Pain, No Fever/Chills; Nausea/Vomiting; No Shortness of Air, No Swelling/Mass in Abdomen; Weakness When I spoke to pt this afternoon, she states the pain is worse than last year when she was treated "conservatively" for a PSBO. She states she has never had surgery for this; PSHx is significant for most recent surgery being Ex-Lap in 2003 to get lymph nodes for NHL. She rated the pain as 8 out of 10, but states she would occasionally get sharp shooting pains into right side that she thought was 10 out of 10. Allergies and Home Medications Allergies Coded Allergies: No Known Drug Allergies (Unverified , 06/10/18) Home Medications Aspirin 81 Mg Tablet.dr, 81 MG PO DAILY, (Reported) Atorvastatin Calcium 20 Mg Tablet, 20 MG PO 1800, (Reported) Cider Vinegar 500 Mg Tablet, 500 MG PO DAILY, (Reported) Clopidogrel Bisulfate 75 Mg Tablet, 75 MG PO 1800, (Reported) Famotidine 20 Mg Tablet, 20 MG PO 1800, (Reported) Folic Acid 1 Mg Tablet, 1 MG PO DAILY, (Reported) Hydrocodone/Acetaminophen 1 Each Tablet, 1 EA PO Q8H PRN for PAIN-MODERATE (5- 7), (Reported) Lisinopril 20 Mg Tablet, 20 MG PO 1800, (Reported) Multivitamin 1 Each Tablet, 1 EACH PO DAILY, (Reported) Mv-Mn/Iron/FA/Herbal Cmplx#190 1 Each Tablet, 1 EACH PO DAILY, (Reported) Vitamin B Complex 1 Each Tablet, 1 EACH PO DAILY, (Reported) Patient Home Medication List Home Medication List Reviewed: Yes Past Avfttzn-Cvrzcs-Vvbxql Hx Patient Social History Alcohol Use: Denies Use Number of Drinks Today: II Recreational Drug Use: No Smoking Status: Never a Smoker 2nd Hand Smoke Exposure: No Recent Foreign Travel: No Contact w/Someone Who Travel: No Recent Infectious Disease Expo: No Recent Hopitalizations: No Physical Abuse Screen: No Sexual Abuse: No Seasonal Allergies Seasonal Allergies: No Surgeries History of Surgeries: Yes Surgeries: Gallbladder, Hysterectomy, Tonsillectomy Respiratory History of Respiratory Disorde: No Cardiovascular History of Cardiac Disorders: Yes Cardiac Disorders: Hypertension Neurological History of Neurological Disord: Yes (2005 stroke) Genitourinary History of Genitourinary Disor: No Gastrointestinal History of Gastrointestinal Di: Yes (2019 AGO BOWEL OBST. 1993 SURGERY FOR ADHESIONS) Musculoskeletal History of Musculoskeletal Dis: Yes Musculoskeletal Disorders: Osteoporosis, Arthritis, Chronic Back Pain Endocrine History of Endocrine Disorders: No HEENT History of HEENT Disorders: No Cancer History of Cancer: Yes (Chemo in 2003, currently in remission.) Cancer: Lymphoma Psychosocial History of Psychiatric Problem: No Integumentary History of Skin or Integumenta: No Blood Transfusions History of Blood Disorders: No Family Medical History Significant Family History: Heart Disease (Father), Hypertension (Mother), Stroke (Mother) Review of Systems-General Constitutional: No chills; malaise, weakness EENTM: No blurred vision, No double vision, No mouth pain, No mouth swelling, No epistaxis Respiratory: No dyspnea on exertion, No hemoptysis, No short of breath Cardiovascular: No chest pain, No edema, No palpitations Gastrointestinal: abdominal pain; No jaundice; loss of appetite, nausea, vomiting Genitourinary: No dysuria, No frequency, No hematuria Musculoskeletal: back pain, joint pain, joint swelling, muscle pain, muscle stiffness Skin: No change in color, No change in hair/nails Psychiatric/Neurological: Denies Anxiety, Denies Depressed, Denies Seizure; Other (Pt has hx of TIA's) Other pt states she bruises and bleeds easily because she takes plavix daily Physical Exam-General Problems Physical Exam Vital Signs Vital Signs - First Documented 07/31/19 07:30 Temp 36.6 Pulse 84 Resp 18 B/P (MAP) 196/111 (139) Pulse Ox 95 O2 Delivery Room Air Capillary Refill : Less Than 3 Seconds General Appearance: WD/WN, no apparent distress Eyes: Bilateral Eye PERRL, Bilateral Eye EOMI HEENT: pharynx normal; No scleral icterus (R), No scleral icterus (L) Neck: non-tender, supple, normal inspection Respiratory: chest non-tender, lungs clear, normal breath sounds, no r espiratory distress, no accessory muscle use Cardiovascular: regular rate, rhythm, no murmur Gastrointestinal: soft, no organomegaly, abnormal bowel sounds (decreased), guarding (voluntary), other (?slight firmness in RLQ) Back: no CVA tenderness, no vertebral tenderness Extremities: no pedal edema, no calf tenderness, normal capillary refill 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, no motor/sensory deficits, alert, normal mood/affect, oriented x 3 Skin: normal color, warm/dry Lymphatic: no adenopathy (neck, axilla or groin) Data Review Labs Laboratory Tests 07/31/19 07:40: White Blood Count 11.6H, Red Blood Count 4.32L, Hemoglobin 13.5, Hematocrit 40, Mean Corpuscular Volume 92, Mean Corpuscular Hemoglobin 31, Mean Corpuscular Hemoglobin Concent 34, Red Cell Distribution Width 14.1, Platelet Count 388, Mean Platelet Volume 10.8H, Neutrophils (%) (Auto) 81H, Lymphocytes (%) (Auto) 12, Monocytes (%) (Auto) 7, Eosinophils (%) (Auto) 0, Basophils (%) (Auto) 0, Neutrophils # (Auto) 9.3H, Lymphocytes # (Auto) 1.3, Monocytes # (Auto) 0.8, Eosinophils # (Auto) 0.0, Basophils # (Auto) 0.0, Sodium Level 139, Potassium Level 4.2, Chloride Level 105, Carbon Dioxide Level 21, Anion Gap 13, Blood Urea Nitrogen 8, Creatinine 0.81, Estimat Glomerular Filtration Rate > 60, BUN/Creatinine Ratio 10, Glucose Level 129H, Calcium Level 9.4, Corrected Calcium 9.2, Magnesium Level 2.0, Total Bilirubin 1.1H, Aspartate Amino Transf (AST/SGOT) 25, Alanine Aminotransferase (ALT/SGPT) 20, Alkaline Phosphatase 116, C-Reactive Protein High Sensitivity 0.40, Total Protein 7.0, Albumin 4.2 07/31/19 08:05: Urine Color YELLOW, Urine Clarity CLEAR, Urine pH 6.0, Urine Specific [place] 1.025H, Urine Protein 1+H, Urine Glucose (UA) NEGATIVE, Urine Ketones NEGATIVE, Urine Nitrite NEGATIVE, Urine Bilirubin NEGATIVE, Urine Urobilinogen 0.2, Urine Leukocyte Esterase NEGATIVE, Urine RBC (Auto) 1+H, Urine RBC 0-2, Urine WBC NONE, Urine Squamous Epithelial Cells RARE, Urine Crystals PRESENTH, Urine Amorphous Sediment RARE SHERYL URATESH, Urine Bacteria TRACE, Urine Casts NONE, Urine Mucus MODERATEH, Urine Culture Indicated NO Assessment/Plan Assessment/Plan Assessment/Plan PSBO HTN Hx of TIA Pt is admitted and will be kept NPO; although I told her she could chew gum. I looked at CT myself and am concerned about possible closed loop obstruction, because small bowel is decompressed before and after a segment that is dilated (I asked radiologist to look at). I will order a SBFT to start tomorrow morning. In the meantime, pt will be started on Lovenox, IV fluids, encouraged to ambulate and will be given pain meds prn. She does not need an NGT at this time, stomach is empty and not distended. Clinical Quality Measures DVT/VTE Risk/Contraindication: Risk Factor Score Per Nursin RFS Level Per Nursing on Admit: 3=High LUISA VALENCIA DO Jul 31, 2019 14:29
[2019-07-31 15:07] VITALS: BP 172/83
[2019-07-31 16:00] VITALS: BP 168/87
[2019-07-31] MEDS: ENOXAPARIN 40 MG/0.4 ML (LOVENOX) SYR SQ SCH (17:44)
[2019-07-31] MEDS: CALCIUM CARBONATE 500 MG (TUMS) TAB.CHEW PO PRN (17:54)
--- NOTE | 2019-07-31 18:31 | NUR ---
THIS NURSE IN AN ISOLATION ROOM TAKING CARE OF A PATIENT AND UNABLE TO ANSWER HER PHONE THAT WAS IN HER POCKET UNDER THE ISOLATION GOWN. Addendum: 07/31/19 at 1833 by SHANNAN BRYANT RN AT 1020AM-1115AM
[2019-07-31 20:00] VITALS: BP 160/79
--- NOTE | 2019-07-31 20:44 | History & Physical ---
HPI History of Present Illness: 73 yo F that presented with left sided abdominal pain, N/V. States that she started having the pain during the weekend and then started vomiting green/yellow on Wednesday. She had a small BM on Wednesday that she said was the size of a teaspoon. Denies any blood in urine or stool. States that she had similar episode last year and was in [place] visiting her daughter. She takes [place] only occassionally for pain. States about 1 time per week at the most. She had open hysterectomy in 1982 but otherwise no other abdominal surgeries. Source: patient Exam Limitations: no limitations Date seen by provider: Jul 31, 2019 Time Seen by Provider: 18:00 Attending Physician Rusty Acosta MD PCP Marcello Joshi MD Consult Date of Admission Jul 31, 2019 at 10:30 Home Medications Home Medications Reviewed patient Home Medication Reconciliation performed by pharmacy medication reconciliations operating room surgical technician and/or nursing. Patients Allergies have been reviewed. Allergies Coded Allergies: No Known Drug Allergies (Unverified , 06/10/18) CEE-Ixqwip-Pdgjci Hx Patient Social History Alcohol Use: Denies Use Recreational Drug Use: No Smoking Status: Never a Smoker 2nd Hand Smoke Exposure: No Recent Foreign Travel: No Contact w/other who traveled: No Recent Hopitalizations: No Recent Infectious Disease Expo: No Physical Abuse Screen: No Sexual Abuse: No Immunizations Up To Date Date of Pneumonia Vaccine: Nov 23, 2016 Past Medical History Osteoprosis HTN HLD Family Medical History Significant Family History: Heart Disease (Father), Hypertension (Mother), Stroke (Mother) Review of Systems ([facility]) Constitutional: No chills, No fever EENTM: No mouth pain, No nose congestion, No nose pain Respiratory: no symptoms reported; No cough, No dyspnea on exertion, No short of breath Cardiovascular: no symptoms reported; No chest pain, No edema, No palpitations Gastrointestinal: abdominal pain, constipation; No hematemesis; loss of appetite, nausea, vomiting Genitourinary: no symptoms reported; No dysuria, No frequency, No hematuria Musculoskeletal: back pain (chronic) Skin: no symptoms reported Psychiatric/Neurological: No Symptoms Reported Reviewed Test Results Reviewed Test Results Lab Laboratory Tests Test 07/31/19 07:40 07/31/19 08:05 Range/Units White Blood Count 11.6 H 4.3-11.0 10^3/uL Red Blood Count 4.32 L 4.35-5.85 10^6/uL Hemoglobin 13.5 11.5-16.0 G/DL Hematocrit 40 35-52 % Mean Corpuscular Volume 92 80-99 FL Mean Corpuscular Hemoglobin 31 25-34 PG Mean Corpuscular Hemoglobin Concent 34 32-36 G/DL Red Cell Distribution Width 14.1 10.0-14.5 % Platelet Count 388 130-400 10^3/uL Mean Platelet Volume 10.8 H 7.4-10.4 FL Neutrophils (%) (Auto) 81 H 42-75 % Lymphocytes (%) (Auto) 12 12-44 % Monocytes (%) (Auto) 7 0-12 % Eosinophils (%) (Auto) 0 0-10 % Basophils (%) (Auto) 0 0-10 % Neutrophils # (Auto) 9.3 H 1.8-7.8 X 10^3 Lymphocytes # (Auto) 1.3 1.0-4.0 X 10^3 Monocytes # (Auto) 0.8 0.0-1.0 X 10^3 Eosinophils # (Auto) 0.0 0.0-0.3 10^3/uL Basophils # (Auto) 0.0 0.0-0.1 10^3/uL Sodium Level 139 135-145 MMOL/L Potassium Level 4.2 3.6-5.0 MMOL/L Chloride Level 105 98-107 MMOL/L Carbon Dioxide Level 21 21-32 MMOL/L Anion Gap 13 5-14 MMOL/L Blood Urea Nitrogen 8 7-18 MG/DL Creatinine 0.81 0.60-1.30 MG/DL Estimat Glomerular Filtration Rate > 60 BUN/Creatinine Ratio 10 Glucose Level 129 H 70-105 MG/DL Calcium Level 9.4 8.5-10.1 MG/DL Corrected Calcium 9.2 8.5-10.1 MG/DL Magnesium Level 2.0 1.6-2.4 MG/DL Total Bilirubin 1.1 H 0.1-1.0 MG/DL Aspartate Amino Transf (AST/SGOT) 25 5-34 U/L Alanine Aminotransferase (ALT/SGPT) 20 0-55 U/L Alkaline Phosphatase 116 40-136 U/L C-Reactive Protein High Sensitivity 0.40 0.00-0.50 MG/DL Total Protein 7.0 6.4-8.2 GM/DL Albumin 4.2 3.2-4.5 GM/DL Urine Color YELLOW Urine Clarity CLEAR Urine pH 6.0 5-9 Urine Specific [place] 1.025 H 1.016-1.022 Urine Protein 1+ H NEGATIVE Urine Glucose (UA) NEGATIVE NEGATIVE Urine Ketones NEGATIVE NEGATIVE Urine Nitrite NEGATIVE NEGATIVE Urine Bilirubin NEGATIVE NEGATIVE Urine Urobilinogen 0.2 < = 1.0 MG/DL Urine Leukocyte Esterase NEGATIVE NEGATIVE Urine RBC (Auto) 1+ H NEGATIVE Urine RBC 0-2 /HPF Urine WBC NONE /HPF Urine Squamous Epithelial Cells RARE /HPF Urine Crystals PRESENT H /LPF Urine Amorphous Sediment RARE SHERYL URATES H /LPF Urine Bacteria TRACE /HPF Urine Casts NONE /LPF Urine Mucus MODERATE H /LPF Urine Culture Indicated NO Physical Exam-([facility]) Physical Exam Vital Signs VS - Last 72 Hours, by Label 07/31/19 07/31/19 07/31/19 07/31/19 07:30 11:26 12:06 12:14 Temp 36.6 36.6 36.3 Pulse 84 82 65 Resp 18 18 19 B/P (MAP) 196/111 (139) 187/90 (139) 172/83 (112) Pulse Ox 95 95 95 96 O2 Delivery Room Air Room Air Room Air Room Air 07/31/19 07/31/19 07/31/19 15:07 16:00 20:00 Temp 36.3 36.7 37.1 Pulse 65 71 75 Resp 19 18 16 B/P (MAP) 172/83 168/87 (114) 160/79 (106) Pulse Ox 96 95 95 O2 Delivery Room Air Room Air Room Air Capillary Refill : Less Than 3 Seconds General Appearance: WD/WN, mild distress (due to pain) HEENT: PERRL/EOMI Neck: non-tender, full range of motion, supple Respiratory: chest non-tender, lungs clear, normal breath sounds, no respiratory distress, no accessory muscle use Cardiovascular: normal peripheral pulses, regular rate, rhythm, no edema, no murmur Gastrointestinal: tenderness (diffuse but worse in LLQ); No mass Back: no CVA tenderness, no vertebral tenderness Extremities: no pedal edema, no calf tenderness, normal capillary refill Neurologic/Psychiatric: vacuum technician II-XII nml as tested, no motor/sensory deficits, alert, normal mood/affect, oriented x 3 Skin: normal color, warm/dry Lymphatic: no adenopathy Assessment/Plan Assessment/Plan Admission Status: Inpatient Order (span 2 midnights) Reason for Inpatient Admission: Needs surgical evaluation and IVFs for bowel rest (1) Small bowel obstruction Status: Acute Assessment & Plan: - Dr Clark consulted and managing patient, bowel rest, plan for small bowel follow thru in the AM (2) Nausea & vomiting Status: Acute Qualifiers: Qualified Codes: R11.14 - Bilious vomiting (3) HTN (hypertension) Status: Chronic Assessment & Plan: - Elevated likely 2/2 to pain, will restart lisinopril and monitor Qualifiers: Qualified Codes: I10 - Essential (primary) hypertension (4) HLD (hyperlipidemia) Status: Chronic (5) Age related osteoporosis Status: Chronic Qualifiers: Qualified Codes: M81.0 - Age-related osteoporosis without current pathol ogical fracture (6) DVT prophylaxis Status: Acute Assessment & Plan: - Lovenox Clinical Quality Measures DVT/VTE Risk/Contraindication: Risk Factor Score Per Nursin RFS Level Per Nursing on Admit: 3=High RUSTY ACOSTA MD Jul 31, 2019 20:44
[2019-08-01] MEDS: ONDANSETRON 4 MG/2 ML (SDV) Z0FRAN IV PRN ×3 (00:27→12:50)
[2019-08-01] MEDS: fentaNYL INJECTION 100 MCG/2 ML AMP IV PRN ×7 (00:27→22:38)
[2019-08-01 00:30] VITALS: BP 156/83
[2019-08-01 04:55] VITALS: BP 174/83
[2019-08-01 05:40] LABS: BASOPHILS % (AUTO) 0 % (0-10); EOSINOPHILS % (AUTO) 0 % (0-10); HEMATOCRIT 35 % (35-52); HEMOGLOBIN 11.7 G/DL (11.5-16.0); LYMPHOCYTES # (AUTO) 1.5 X 10^3 (1.0-4.0); LYMPHOCYTES % (AUTO) 14 % (12-44); MEAN CORPUSCULAR HEMOGLOBIN 32 PG (25-34); MEAN CORPUSCULAR HGB CONC 33 G/DL (32-36); MEAN CORPUSCULAR VOLUME 95 FL (80-99); MEAN PLATELET VOLUME 11.2 FL (7.4-10.4); MONOCYTES # (AUTO) 0.7 X 10^3 (0.0-1.0); MONOCYTES % (AUTO) 7 % (0-12); NEUTROPHILS # (AUTO) 8.3 X 10^3 (1.8-7.8); NEUTROPHILS % (AUTO) 79 % (42-75); PLATELET COUNT 306 10^3/uL (130-400); RED CELL DISTRIBUTION WIDTH 13.8 % (10.0-14.5); WHITE BLOOD COUNT 10.5 10^3/uL (4.3-11.0)
[2019-08-01 06:02] LABS: ALBUMIN 3.5 GM/DL (3.2-4.5); CHLORIDE 105 MMOL/L (98-107); POTASSIUM 3.9 MMOL/L (3.6-5.0); SODIUM 139 MMOL/L (135-145)
[2019-08-01 06:03] LABS: CALCIUM 8.6 MG/DL (8.5-10.1)
[2019-08-01 06:04] LABS: GLUCOSE 112 MG/DL (70-105); TOTAL PROTEIN 5.6 GM/DL (6.4-8.2)
[2019-08-01 06:05] LABS: CARBON DIOXIDE 23 MMOL/L (21-32)
[2019-08-01 06:06] LABS: BILIRUBIN,TOTAL 0.9 MG/DL (0.1-1.0)
[2019-08-01 06:07] LABS: ALKALINE PHOSPHATASE 87 U/L (40-136)
[2019-08-01 06:08] LABS: CREATININE SERUM 0.78 MG/DL (0.60-1.30); GFR ESTIMATED > 60
[2019-08-01 06:09] LABS: BUN/CREATININE RATIO 10
[2019-08-01 06:11] LABS: ALANINE AMINOTRANSFERASE 13 U/L (0-55)
[2019-08-01] MEDS: LACTATED RINGERS 1,000 ML IV SCH ×2 (07:46→17:58)
[2019-08-01 08:00] VITALS: BP 176/78
[2019-08-01] MEDS ORDERED: DIATRIZOATE MEGLUM/SODIUM 37% 120 ML (GASTROGRAFIN) PO ONE (09:15)
[2019-08-01 12:00] VITALS: BP 164/74
--- NOTE | 2019-08-01 13:28 | Diagnostic Imaging Report ---
INDICATION: Small bowel obstruction. TECHNIQUE: 120 mL of Gastrografin mixed with 120 mL of water was ingested by the patient. Serial radiographs of the abdomen were then obtained. FINDINGS: The ultrasonic tester radiograph does show some mild gaseous distention of small bowel loops in the central abdomen. The colon does contain gas and is decompressed. No pathologic calcifications are seen. Post ingestion images demonstrate contrast within the stomach with prompt emptying into nondilated proximal small bowel loops. There is progression of contrast media through the small bowel loops. The mid to distal small bowel is slightly more dilated than the proximal loops but contrast does progress to the right colon seen at 2 hours. No complete small bowel obstruction is seen. The mucosal fold pattern is unremarkable. IMPRESSION: Contrast does reach the right colon in 2 hours. No complete small bowel obstruction is seen. Dictated by: Dictated on workstation # [id number]
[2019-08-01 16:32] VITALS: BP 171/82
--- NOTE | 2019-08-01 17:46 | Progress Note - Surgery ---
Subjective Time Seen by a Provider: 17:02 Subjective/Events-last exam Pt seen and examined, states she feels better today and had a BM. She has also been walking more. Review of Systems Pulmonary: No Dyspnea, No Cough Cardiovascular: No: Chest Pain, Palpitations Gastrointestinal: No: Nausea, Vomiting, Abdominal Pain Objective Exam Vital Signs Date Time Temp Pulse Resp B/P (MAP) Pulse Ox O2 Delivery O2 Flow Rate FiO2 08/01/19 16:32 36.9 72 20 171/82 (111) 97 Room Air 08/01/19 12:00 37.1 68 20 164/74 (104) 95 Room Air 08/01/19 08:00 37.1 76 18 176/78 (110) 97 Room Air 08/01/19 08:00 Room Air 08/01/19 04:55 37.0 74 18 174/83 (113) 94 Room Air 08/01/19 00:30 37.3 76 18 156/83 (107) 96 Room Air 07/31/19 21:00 Room Air 07/31/19 20:00 37.1 75 16 160/79 (106) 95 Room Air I & O 08/01/19 07:00 Intake Total 1000 ml Output Total 400 ml Balance 600 ml Capillary Refill : Less Than 3 Seconds General Appearance: No Apparent Distress Respiratory: Lungs Clear, Normal Breath Sounds, No Accessory Muscle Use, No Respiratory Distress Cardiovascular: Regular Rate, Rhythm, No Murmur Gastrointestinal: non tender, soft, no organomegaly; No mass Results Lab Laboratory Tests 08/01/19 05:20: White Blood Count 10.5, Red Blood Count 3.71L, Hemoglobin 11.7, Hematocrit 35, Mean Corpuscular Volume 95, Mean Corpuscular Hemoglobin 32, Mean Corpuscular Hemoglobin Concent 33, Red Cell Distribution Width 13.8, Platelet Count 306, Mean Platelet Volume 11.2H, Neutrophils (%) (Auto) 79H, Lymphocytes (%) (Auto) 14, Monocytes (%) (Auto) 7, Eosinophils (%) (Auto) 0, Basophils (%) (Auto) 0, Neutrophils # (Auto) 8.3H, Lymphocytes # (Auto) 1.5, Monocytes # (Auto) 0.7, Eosinophils # (Auto) 0.0, Basophils # (Auto) 0.0, Sodium Level 139, Potassium Level 3.9, Chloride Level 105, Carbon Dioxide Level 23, Anion Gap 11, Blood Urea Nitrogen 8, Creatinine 0.78, Estimat Glomerular Filtration Rate > 60, BUN/Creatinine Ratio 10, Glucose Level 112H, Calcium Level 8.6, Corrected Calcium 9.0, Total Bilirubin 0.9, Aspartate Amino Transf (AST/SGOT) 20, Alanine Aminotransferase (ALT/SGPT) 13, Alkaline Phosphatase 87, Total Protein 5.6L, Albumin 3.5 Assessment/Plan Assessment/Plan Assessment/Plan PSBO - resolved HTN Hx of TIA SBFT showed contrast in Ascending colon after less than 3 hours and pt is having BM's today. Pt encouraged to continue ambulating and will start liquid diet. Will probably advance diet tomorrow if she tolerates liquids. Continue blood thinners. Clinical Quality Measures DVT/VTE Risk/Contraindication: Risk Factor Score Per Nursin RFS Level Per Nursing on Admit: 3=High LUISA VALENCIA DO Aug 01, 2019 17:46
[2019-08-01] MEDS: ENOXAPARIN 40 MG/0.4 ML (LOVENOX) SYR SQ SCH (17:58)
[2019-08-01] MEDS: lisINopril 20 MG (PRINIVIL) TABLET PO SCH (18:09)
[2019-08-01] MEDS: CALCIUM CARBONATE 500 MG (TUMS) TAB.CHEW PO PRN (19:43)
--- NOTE | 2019-08-01 22:09 | Progress Note ---
Subjective Subjective/Events-last exam Patient states that she was feeling better until she did the SB follow thru and then she started having pain again. She is having some small BMs. Tolerating ambulation Review of Systems Pulmonary: No Dyspnea, No Cough Cardiovascular: No: Chest Pain, Palpitations, Edema Gastrointestinal: Nausea, Abdominal Pain Neurological: Weakness Objective Exam Last Set of Vital Signs Vital Signs Date Time Temp Pulse Resp B/P (MAP) Pulse Ox O2 Delivery O2 Flow Rate FiO2 08/01/19 20:16 Room Air 08/01/19 16:32 36.9 72 20 171/82 (111) 97 Capillary Refill : Less Than 3 Seconds I&O Intake and Output 08/01/19 00:00 Intake Total 1000 ml Output Total 300 ml Balance 700 ml Intake Oral 0 ml IV Total 1000 ml Output Urine Total 300 ml # Voids 1 Daily Weight Change No No General: Alert, Oriented X3, No Acute Distress Lungs: Clear to Auscultation, Normal Air Movement Heart: Regular Rate, No Murmurs Abdomen: Soft, Other (diffuse abdominal ttp, no rebound or gaurding) Extremities: No Edema, No Tenderness/Swelling Neuro: Normal Speech, Strength at 5/5 X4 Ext, Sensation Intact, Cranial Nerves 3-12 NL Results/Procedures Lab Laboratory Tests 08/01/19 05:20: White Blood Count 10.5, Red Blood Count 3.71L, Hemoglobin 11.7, Hematocrit 35, Mean Corpuscular Volume 95, Mean Corpuscular Hemoglobin 32, Mean Corpuscular Hemoglobin Concent 33, Red Cell Distribution Width 13.8, Platelet Count 306, Mean Platelet Volume 11.2H, Neutrophils (%) (Auto) 79H, Lymphocytes (%) (Auto) 14, Monocytes (%) (Auto) 7, Eosinophils (%) (Auto) 0, Basophils (%) (Auto) 0, Neutrophils # (Auto) 8.3H, Lymphocytes # (Auto) 1.5, Monocytes # (Auto) 0.7, Eosinophils # (Auto) 0.0, Basophils # (Auto) 0.0, Sodium Level 139, Potassium Level 3.9, Chloride Level 105, Carbon Dioxide Level 23, Anion Gap 11, Blood Urea Nitrogen 8, Creatinine 0.78, Estimat Glomerular Filtration Rate > 60, BUN/Creatinine Ratio 10, Glucose Level 112H, Calcium Level 8.6, Corrected Calcium 9.0, Total Bilirubin 0.9, Aspartate Amino Transf (AST/SGOT) 20, Alanine Aminotransferase (ALT/SGPT) 13, Alkaline Phosphatase 87, Total Protein 5.6L, Albumin 3.5 Assessment/Plan Assessment/Plan (1) Small bowel obstruction Status: Acute Assessment & Plan: - Dr Clark consulted and managing patient, bowel rest, plan for small bowel follow thru in the AM 07/31 Small bowel f.u this AM, medical management per Dr Clark, encourage ambulation, having small BMs this AM (2) Nausea & vomiting Status: Resolved Qualifiers: Qualified Codes: R11.14 - Bilious vomiting (3) HTN (hypertension) Status: Chronic Assessment & Plan: - Elevated likely 2/2 to pain, will restart lisinopril and monitor Qualifiers: Qualified Codes: I10 - Essential (primary) hypertension (4) HLD (hyperlipidemia) Status: Chronic Qualifiers: Qualified Codes: E78.5 - Hyperlipidemia, unspecified (5) Age related osteoporosis Status: Chronic Qualifiers: Qualified Codes: M81.0 - Age-related osteoporosis without current pathological fracture (6) DVT prophylaxis Status: Acute Assessment & Plan: - Lovenox Clinical Quality Measures DVT/VTE Risk/Contraindication: Risk Factor Score Per Nursin RFS Level Per Nursing on Admit: 3=High RUSTY NAIK MD Aug 01, 2019 22:09
[2019-08-02 00:32] VITALS: BP 147/82
[2019-08-02] MEDS: fentaNYL INJECTION 100 MCG/2 ML AMP IV PRN ×3 (01:47→15:06)
[2019-08-02] MEDS: LACTATED RINGERS 1,000 ML IV SCH ×2 (04:24→15:10)
[2019-08-02 05:54] LABS: BASOPHILS % (AUTO) 0 % (0-10); EOSINOPHILS # (AUTO) 0.1 10^3/uL (0.0-0.3); EOSINOPHILS % (AUTO) 1 % (0-10); HEMATOCRIT 31 % (35-52); LYMPHOCYTES # (AUTO) 2.1 X 10^3 (1.0-4.0); LYMPHOCYTES % (AUTO) 22 % (12-44); MEAN CORPUSCULAR HEMOGLOBIN 31 PG (25-34); MEAN CORPUSCULAR HGB CONC 32 G/DL (32-36); MEAN CORPUSCULAR VOLUME 95 FL (80-99); MEAN PLATELET VOLUME 11.4 FL (7.4-10.4); MONOCYTES # (AUTO) 0.9 X 10^3 (0.0-1.0); MONOCYTES % (AUTO) 10 % (0-12); NEUTROPHILS # (AUTO) 6.3 X 10^3 (1.8-7.8); NEUTROPHILS % (AUTO) 67 % (42-75); PLATELET COUNT 267 10^3/uL (130-400); RED CELL DISTRIBUTION WIDTH 13.9 % (10.0-14.5); WHITE BLOOD COUNT 9.4 10^3/uL (4.3-11.0)
[2019-08-02 05:55] LABS: SMEAR SCAN COMMENT NO
[2019-08-02 06:16] LABS: CHLORIDE 106 MMOL/L (98-107); POTASSIUM 3.1 MMOL/L (3.6-5.0); SODIUM 140 MMOL/L (135-145)
[2019-08-02 06:18] LABS: GLUCOSE 92 MG/DL (70-105)
[2019-08-02 06:20] LABS: CARBON DIOXIDE 24 MMOL/L (21-32)
[2019-08-02 06:22] LABS: CREATININE SERUM 0.74 MG/DL (0.60-1.30); GFR ESTIMATED > 60
[2019-08-02 06:23] LABS: BUN/CREATININE RATIO 12
[2019-08-02 06:52] LABS: EOSINOPHILS % (MANUAL) 2 %; HYPOCHROMASIA SLIGHT; LYMPHOCYTES % (MANUAL) 24 %; MONOCYTES % (MANUAL) 5 %; NEUTROPHILS % (MANUAL) 69 %
[2019-08-02 07:19] VITALS: BP 152/68
[2019-08-02] MEDS: CALCIUM CARBONATE 500 MG (TUMS) TAB.CHEW PO PRN ×2 (09:00→19:39)
[2019-08-02] MEDS: POTASSIUM CL 10MEQ/50ML IVPB 50 ML IV SCH ×2 (09:01→11:42)
--- NOTE | 2019-08-02 12:47 | Progress Note - Surgery ---
Subjective Time Seen by a Provider: 12:38 Subjective/Events-last exam Pt seen and examined, tolerating diet with BM's and eating without pain. Review of Systems Pulmonary: No Dyspnea, No Cough Cardiovascular: No: Chest Pain, Palpitations Gastrointestinal: No: Nausea, Vomiting, Abdominal Pain Objective Exam Vital Signs Date Time Temp Pulse Resp B/P (MAP) Pulse Ox O2 Delivery O2 Flow Rate FiO2 08/02/19 09:00 Room Air 08/02/19 07:19 36.9 69 18 152/68 (96) 95 Room Air 08/02/19 00:32 36.9 72 18 147/82 (103) 95 Room Air 08/01/19 20:16 Room Air 08/01/19 16:32 36.9 72 20 171/82 (111) 97 Room Air I & O 08/02/19 07:00 Intake Total 4120 ml Output Total 600 ml Balance 3520 ml Capillary Refill : Less Than 3 Seconds General Appearance: No Apparent Distress, WD/WN Respiratory: Lungs Clear, Normal Breath Sounds, No Accessory Muscle Use, No Res piratory Distress Cardiovascular: Regular Rate, Rhythm, No Murmur Gastrointestinal: non tender, soft, no organomegaly; No mass Results Lab Laboratory Tests 08/02/19 05:00: White Blood Count 9.4, Red Blood Count 3.25L, Hemoglobin 10.0L, Hematocrit 31L, Mean Corpuscular Volume 95, Mean Corpuscular Hemoglobin 31, Mean Corpuscular Hemoglobin Concent 32, Red Cell Distribution Width 13.9, Platelet Count 267, Mean Platelet Volume 11.4H, Neutrophils (%) (Auto) 67, Lymphocytes (%) (Auto) 22, Monocytes (%) (Auto) 10, Eosinophils (%) (Auto) 1, Basophils (%) (Auto) 0, Neutrophils # (Auto) 6.3, Lymphocytes # (Auto) 2.1, Monocytes # (Auto) 0.9, Eosinophils # (Auto) 0.1, Basophils # (Auto) 0.0, Neutrophils % (Manual) 69, Lymphocytes % (Manual) 24, Monocytes % (Manual) 5, Eosinophils % (Manual) 2, Hypochromasia SLIGHT, Sodium Level 140, Potassium Level 3.1L, Chloride Level 106, Carbon Dioxide Level 24, Anion Gap 10, Blood Urea Nitrogen 9, Creatinine 0.74, Estimat Glomerular Filtration Rate > 60, BUN/Creatinine Ratio 12, Glucose Level 92, Calcium Level 8.0L, Smear Scan NO Assessment/Plan Assessment/Plan Assessment/Plan PSBO - resolved HTN Hx of TIA Pt ok to be sent home from surgery standpoint. F/U in clinic as needed. Clinical Quality Measures DVT/VTE Risk/Contraindication: Risk Factor Score Per Nursin RFS Level Per Nursing on Admit: 3=High LUISA VALENCIA DO Aug 02, 2019 12:47
--- NOTE | 2019-08-02 13:23 | NUR ---
RD ASSESSMENT PMHx: HLD; HTN osteoporosis PT INTERACTION: Pt was awake and pleasant during nutrition assessment. Pt states current appetite is "getting better." Note avg PO intake 27% x2meal, per chart review. Pt states following a "less-fat, less-Na" diet at home, and has no issues with chewing/swallowing food. Pt states some recent issues with nausea and vomiting. Note 5 episodes of emesis 07/31, per chart review. Pt states some recent issues with constipation and diarrhea. Note last BM was 08/01, and pt not currently on bowel regimen per chart review. Pt states no recent wt changes. Note unable to determine recent wt hx, per chart review. ABNORMAL NUTRITION-RELATED LAB VALUES LOW: K 3.1; Ca 8.0 HIGH: Est. kcal needs: 6262-2448 kcal | 20-25 kcal/kg Est. Pro needs: 58-73 g Pro | 0.8-1.0 g Pro/kg PES STATEMENT: Inadequate oral intake (NI-2.1) related to loss of appetite | nausea | vomiting | constipation | diarrhea as evidenced by pt interview INTERVENTION: Continue with current diet order of Clear Liquid diet. Add Ensure Clear (vary) to meals TID, for increased kcal intake. Provides 250 kcal and 8 g Pro per serving. Will continue to follow and reassess as pt needs, intake, and status change. MONITOR/EVALUATE: PO Intake; Plan of Care; Hydration Status; Weight Status; Lab Values Hebert Graham, MS, RD, LD
[2019-08-02 15:41] VITALS: BP 138/75
[2019-08-02] MEDS: ENOXAPARIN 40 MG/0.4 ML (LOVENOX) SYR SQ SCH (17:06)
[2019-08-02] MEDS: lisINopril 20 MG (PRINIVIL) TABLET PO SCH (17:06)
--- NOTE | 2019-08-02 17:07 | Progress Note ---
Subjective Subjective/Events-last exam Patient states that she is doing better. Having alot of stools and some cramping. Tolerating PO diet and ambulation Review of Systems Pulmonary: No Dyspnea, No Cough Cardiovascular: No: Chest Pain, Palpitations Gastrointestinal: Abdominal Pain, Diarrhea; No: Nausea, Vomiting Genitourinary: No Dysuria; Frequency Neurological: Weakness Objective Exam Last Set of Vital Signs Vital Signs Date Time Temp Pulse Resp B/P (MAP) Pulse Ox O2 Delivery O2 Flow Rate FiO2 08/02/19 15:41 37.0 73 18 138/75 (96) 99 Room Air Capillary Refill : Less Than 3 Seconds I&O Intake and Output 08/02/19 00:00 Intake Total 2760 ml Output Total 100 ml Balance 2660 ml Intake Oral 760 ml IV Total 2000 ml Output Urine Total 100 ml # Voids 5 # Bowel Movements 3 # Emeses 5 General: Alert, Oriented X3, No Acute Distress HEENT: Mucous Memb Moist/[place] Lungs: Clear to Auscultation, Normal Air Movement Heart: Regular Rate, No Murmurs Abdomen: Normal Bowel Sounds, Soft, Other (LLQ ttp, no rebound or guarding) Extremities: No Edema, No Tenderness/Swelling Neuro: Normal Speech, Strength at 5/5 X4 Ext Results/Procedures Lab Laboratory Tests 08/02/19 05:00: White Blood Count 9.4, Red Blood Count 3.25L, Hemoglobin 10.0L, Hematocrit 31L, Mean Corpuscular Volume 95, Mean Corpuscular Hemoglobin 31, Mean Corpuscular Hemoglobin Concent 32, Red Cell Distribution Width 13.9, Platelet Count 267, Mean Platelet Volume 11.4H, Neutrophils (%) (Auto) 67, Lymphocytes (%) (Auto) 22, Monocytes (%) (Auto) 10, Eosinophils (%) (Auto) 1, Basophils (%) (Auto) 0, Neutrophils # (Auto) 6.3, Lymphocytes # (Auto) 2.1, Monocytes # (Auto) 0.9, Eosinophils # (Auto) 0.1, Basophils # (Auto) 0.0, Neutrophils % (Manual) 69, Lymphocytes % (Manual) 24, Monocytes % (Manual) 5, Eosinophils % (Manual) 2, Hypochromasia SLIGHT, Sodium Level 140, Potassium Level 3.1L, Chloride Level 106, Carbon Dioxide Level 24, Anion Gap 10, Blood Urea Nitrogen 9, Creatinine 0.74, Estimat Glomerular Filtration Rate > 60, BUN/Creatinine Ratio 12, Glucose Level 92, Calcium Level 8.0L, Smear Scan NO Assessment/Plan Assessment/Plan (1) Small bowel obstruction Status: Acute Assessment & Plan: - Dr Clark consulted and managing patient, bowel rest, plan for small bowel follow thru in the AM 07/31 Small bowel f.u this AM, medical management per Dr Clark, encourage ambulation, having small BMs this AM 08/01: Having more BMs, Tolerating CLD but still having some pain, changed pain medication to PO today, if tolerating PO pain medication and diet will d/c in AM (2) Nausea & vomiting Status: Resolved Qualifiers: Qualified Codes: R11.14 - Bilious vomiting (3) HTN (hypertension) Status: Chronic Assessment & Plan: - Elevated likely 2/2 to pain, will restart lisinopril and monitor Qualifiers: Qualified Codes: I10 - Essential (primary) hypertension (4) HLD (hyperlipidemia) Status: Chronic Qualifiers: Qualified Codes: E78.5 - Hyperlipidemia, unspecified (5) Age related osteoporosis Status: Chronic Qualifiers: Qualified Codes: M81.0 - Age-related osteoporosis without current pathological fracture (6) DVT prophylaxis Status: Acute Assessment & Plan: - Lovenox Clinical Quality Measures DVT/VTE Risk/Contraindication: Risk Factor Score Per Nursin RFS Level Per Nursing on Admit: 3=High RUSTY NAIK MD Aug 02, 2019 17:07
[2019-08-02 23:12] VITALS: BP 146/82
[2019-08-03] MEDS: LACTATED RINGERS 1,000 ML IV SCH (01:04)
[2019-08-03 07:01] LABS: BUN/CREATININE RATIO 10; CALCIUM 8.3 MG/DL (8.5-10.1); CARBON DIOXIDE 21 MMOL/L (21-32); CHLORIDE 107 MMOL/L (98-107); CREATININE SERUM 0.71 MG/DL (0.60-1.30); GFR ESTIMATED > 60; GLUCOSE 94 MG/DL (70-105); POTASSIUM 3.5 MMOL/L (3.6-5.0); SODIUM 141 MMOL/L (135-145)
[2019-08-03] MEDS ORDERED: CHLORASEPTIC SPRAY 177 ML LIQUID MC PRN (07:45)
[2019-08-03 08:00] VITALS: BP 174/75
--- NOTE | 2019-08-03 11:00 | Discharge Summary ---
Diagnosis/Chief Complaint Date of Admission Jul 31, 2019 at 10:30 Date of Discharge 08/03/2019 Admission Diagnosis Admission Diagnosis See problem list Discharge Diagnosis See below Problems/Diagnosis: (1) Small bowel obstruction Assessment & Plan: - Dr Clark consulted and managing patient, bowel rest, plan for small bowel follow thru in the AM 07/31 Small bowel f.u this AM, medical management per Dr Clark, encourage ambulation, having small BMs this AM 08/01: Having more BMs, Tolerating CLD but still having some pain, changed pain medication to PO today, if tolerating PO pain medication and diet will d/c in AM 08/02: Tolerating soft diet, will d.c home today Status: Acute (2) Nausea & vomiting Qualifiers: Qualified Codes: R11.14 - Bilious vomiting Status: Resolved Resolution Date/Time: 08/01/19 @ 22:09 (3) HTN (hypertension) Assessment & Plan: - Elevated likely 2/2 to pain, will restart lisinopril and monitor Qualifiers: Qualified Codes: I10 - Essential (primary) hypertension Status: Chronic (4) HLD (hyperlipidemia) Qualifiers: Qualified Codes: E78.5 - Hyperlipidemia, unspecified Status: Chronic (5) Age related osteoporosis Qualifiers: Qualified Codes: M81.0 - Age-related osteoporosis without current pathological fracture Status: Chronic (6) DVT prophylaxis Assessment & Plan: - Lovenox Status: Acute Chief Complaint/HPI Chief Complaint/HPI 73 yo F that presented with left sided abdominal pain, N/V. States that she started having the pain during the weekend and then started vomiting green/y ellow on Wednesday. She had a small BM on Wednesday that she said was the size of a teaspoon. Denies any blood in urine or stool. States that she had similar episode last year and was in visiting her daughter. She takes [place] only occassionally for pain. States about 1 time per week at the most. She had open hysterectomy in 1982 but otherwise no other abdominal surgeries. Discharge Summary-Simple/Stand Procedures Barium Swallow Study Consultations Dr Clark: General Surgery Discharge Physical Examination Allergies: Coded Allergies: No Known Drug Allergies (Unverified , 06/10/18) Vitals & I&Os Vital Sign - Last 12Hours Date Time Temp Pulse Resp B/P (MAP) Pulse Ox O2 Delivery O2 Flow Rate FiO2 08/03/19 09:00 Room Air 08/03/19 08:00 36.7 68 20 174/75 (108) 96 Intake and Output 08/03/19 00:00 Intake Total 2015 ml Output Total 1300 ml Balance 715 ml General Appearance: Alert, Oriented X3, Cooperative, No Acute Distress HEENT: Mucous Memb Moist/[place] Respiratory: Clear to Auscultation, Normal Air Movement Cardiovascular: Regular Rate, No Murmurs Abdominal: Normal Bowel Sounds, Soft, Other (mild LLQ ttp, no rebound or guarding) Extremities: No Edema, No Tenderness/Swelling Skin: No Rashes, No Breakdown Neuro: Strength at 5/5 X4 Ext, Sensation Intact, Cranial Nerves 3-12 NL Hospital Course Was the Problem List Reviewed?: Yes See final discharge diagnosis. Discussion & Recommendations 73 yo F that presented with symptoms of SBO. This is her second episode of SBO. Patient was started on bowel rest and it resolved on its own. She was tolerating soft PO diet prior to discharge. Discharge Condition at discharge Stable Instructions to patient/family Please see electronic discharge instructions given to patient. Discharge Medications Reviewed and agree with Discharge Medication list on patient's Discharge Instruction sheet Clinical Quality Measures DVT/VTE Risk/Contraindication: Risk Factor Score Per Nursin RFS Level Per Nursing on Admit: 3=High Copy Copies To 1: DIDI DE LA CRUZ MD, HOLLY R MD Aug 03, 2019 11:00
--- NOTE | 2019-08-03 11:05 | Discharge Summary ---
Discharge [facility] Reconcile Patient Problems Problems Reviewed?: Yes Discharge Medications New, Converted or Re-Newed RX: Transmitted to Pharmacy Continued Medications: Aspirin (Aspirin EC) 81 Mg Tablet.dr 81 MG PO DAILY, TAB Atorvastatin Calcium (Atorvastatin Calcium) 20 Mg Tablet 20 MG PO 1800, TAB Clopidogrel Bisulfate (Clopidogrel) 75 Mg Tablet 75 MG PO 1800, TAB Famotidine (Famotidine) 20 Mg Tablet 20 MG PO 1800, TAB Folic Acid (Folic Acid) 1 Mg Tablet 1 MG PO DAILY, TAB Hydrocodone/Acetaminophen (Hydrocodone-Acetamin 5-325 mg) 1 Each Tablet 1 EA PO Q8H PRN for PAIN-MODERATE (5-7), TAB Lisinopril (Lisinopril) 20 Mg Tablet 20 MG PO 1800, TAB Multivitamin (Multivitamin) 1 Each Tablet 1 EACH PO DAILY, TAB Mv-Mn/Iron/FA/Herbal Cmplx#190 (Vitamin D3 Complete Caplet) 1 Each Tablet 1 EACH PO DAILY, TAB Vitamin B Complex (Vitamin B Complex) 1 Each Tablet 1 EACH PO DAILY, TAB Discontinued Medications: Cider Vinegar (Apple Cider Vinegar) 500 Mg Tablet 500 MG PO DAILY, TAB Patient Instructions Goal/Follow Up Appt: You have a hospital f.u appt with Dr Joshi on August 08 @ 11 AM Patient Instructions: - Continue to eat soft and bland diet [facility] to [facility]: - Worsening abdominal pain - Nausea or vomiting Activity & Diet Discharge Diet: Soft Diet Activity as Tolerated: Yes Copy Copies To 1: DIDI JOSHI MD, HOLLY R MD Aug 03, 2019 11:05
[2019-08-03 11:41] VITALS: BP 174/75
== END 2019-08-03 11:41 | disposition home or self-care (01) | DRG 389 ==
LOC: EDUNIT# 07:23 → ER 07:24 → 4TH 10:30
PROVIDERS: ADMIT Family Medicine; ATTEND Family Medicine
DX: K56.690 Other partial intestinal obstruction (principal); C85.90 Non-Hodgkin lymphoma, unspecified, unspecified site; I10 Essential (primary) hypertension; E78.5 Hyperlipidemia, unspecified; M81.0 Age-related osteoporosis without current pathological fracture; M19.91 Primary osteoarthritis, unspecified site; M54.9 Dorsalgia, unspecified; Z86.73 Personal history of transient ischemic attack (TIA), and cerebral infarction without residual deficits; Z92.21 Personal history of antineoplastic chemotherapy; Z79.02 Long term (current) use of antithrombotics/antiplatelets
CPT/HCPCS: 36415; 51701; 74177; 74250; 80048; 80053; 81000; 83735; 85007; 85025; 85027; 86141; 96361; 96374; 96375

== ENCOUNTER → 2019-08-10 | Outpatient (CLI) | payer MEDICARE ==
[~2019-08-10] VITALS: Ht 152.4 cm; Wt 72.7 kg
[~2019-08-10] MED LIST: ASPI-983 PO; ATOR20TA66 PO; CIDE500T PO; CLOP75TA28 PO; FAMO20TA5 PO; FOLI1TAB24 PO; HYDR-83 PO; LIDOCAINE 1% INJ 20 ML 20 ML VIAL INJ ONE; LIDOCAINE 1% INJ 20 ML 20 ML VIAL ONE; LISI-552 PO; MULT-1136 PO; MV-M1TAB20 PO; VITA1TAB17 PO
--- NOTE | 2019-08-10 20:28 | Diagnostic Imaging Report ---
INDICATION: Left breast hypoechogenicity. Patient presents for biopsy. FINDINGS: Patient was brought to the procedure room and placed on the table in the supine position. Ultrasound imaging of the left breast was performed to evaluate appropriate entry site. The left breast was then prepped and draped in the usual sterile fashion. A small amount of 1% lidocaine was utilized for local anesthesia. The 10-gauge mammotome vacuum-assisted device was advanced and placed with its biopsy chamber along the posterior margin of the hypoechoic mass at the 2:00 location of left breast, 6 images from the nipple. Two core biopsies were obtained. Additional lidocaine was then administered and the needle was repositioned and two additional biopsies were obtained. A marker clip was then deployed. Hemostasis was obtained using manual compression. Patient tolerated the procedure well and obtained a post procedure mammogram in satisfactory condition. IMPRESSION: Successful ultrasound-guided core biopsy of the area of hypoechogenicity left breast 2:00 location utilizing a vacuum-assisted device. Pathology results are currently pending. Dictated by: Dictated on workstation # [id number]
--- NOTE | 2019-08-11 09:24 | Diagnostic Imaging Report ---
INDICATION: Left breast mass, status post biopsy. Unilateral left 2D CC and ML mammography was performed post left breast ultrasound-guided biopsy. A marker clip is identified in the upper and outer aspect of the left breast at previously noted site of irregular density. IMPRESSION: 1. Marker clip appears to be in an appropriate location, upper outer left breast, status post biopsy. Pathology results are currently pending. Dictated by: Dictated on workstation # [id number]
== END ==
LOC: RAD 13:33
PROVIDERS: ATTEND Family Medicine
DX: N63.20 Unspecified lump in the left breast, unspecified quadrant (principal)
CPT/HCPCS: 19083; 77065; G0279

== ENCOUNTER → 2019-09-12 | Outpatient (CLI) | payer MEDICARE ==
[~2019-09-12] MED LIST changes: -LIDOCAINE 1% INJ 20 ML 20 ML VIAL INJ ONE; -LIDOCAINE 1% INJ 20 ML 20 ML VIAL ONE
--- NOTE | 2019-09-12 13:31 | Diagnostic Imaging Report ---
INDICATION: Left breast carcinoma, initial staging. TECHNIQUE: The serum blood glucose level at the time of injection was 120 mg/dL. The patient was administered 14.5 mCi of F-18 FDG intravenously in the right antecubital location and PET imaging was performed from the top of the skull to the mid thighs. A noncontrast CT was also performed for attenuation correction and anatomic correlation. COMPARISON: No prior PET/CT study is available for comparison. FINDINGS: No suspicious hypermetabolism in the brain is identified. The soft tissues of the neck are unremarkable. No definite mediastinal or hilar hypermetabolism is seen. No pulmonary parenchymal abnormality is identified. Vague uptake in the lateral left breast is noted, likely at the site of the patient's known breast malignancy. Physiologic activity in the GI and tracts of the abdomen and pelvis is noted. No suspicious hypermetabolism is identified. IMPRESSION: Essentially unremarkable PET/CT study apart from mild uptake in the lateral left breast at the site of known malignancy. No definite findings to suggest metastatic disease are identified. Dictated by: Dictated on workstation # [id number]
== END ==
LOC: RAD 08:34
PROVIDERS: ATTEND Internal Medicine Hematology & Oncology
DX: C50.912 Malignant neoplasm of unspecified site of left female breast (principal)
CPT/HCPCS: 78815; A9552

== ENCOUNTER 2019-09-21 05:50 | Outpatient (RCR) | payer MEDICARE ==
[~2019-09-21] VITALS: Ht 152 cm; Wt 71.8 kg
[~2019-09-21 05:50] MED LIST changes: +HYDR-3812 PO; -HYDR-83 PO
[2019-09-21] MEDS ORDERED: CALC625T29 PO (11:05)
[2019-09-21] MEDS ORDERED: LISI10TA2 PO (11:05)
== END 2019-09-21 11:24 | disposition home or self-care (01) ==
LOC: PREOP 05:50
PROVIDERS: ATTEND Surgery
DX: Z01.818 Encounter for other preprocedural examination (principal)

== ENCOUNTER 2019-09-28 06:02 | Day surgery (SDC) | payer MEDICARE ==
[~2019-09-28] VITALS: Ht 152 cm; Wt 71.8 kg
[2019-09-28] VITALS (11 sets, daily range): BP systolic 131–188; BP diastolic 58–101
[~2019-09-28 06:02] MED LIST changes: +ACHD5005 PO; +ASPI-1238 PO; -ASPI-983 PO; +CALC625T29 PO; -HYDR-3812 PO; +LISI10TA2 PO
--- OUTSIDE RECORDS SUMMARY | 2019-09-28 06:06 | XMS REPORT | Continuity of Care Document ---
Author Organization Unknown Address Unknown Phone Unavailable Allergies Active Description Code Type Severity Reaction Onset Reported/Identified Relationship to Patient Clinical Status Yes No Known Drug Allergies [id number] Drug Allergy Unknown N/A 06/10/2018 Yes morphine [id number] Drug Allergy Severe 2004-BECAME DEP 09/21/2019 Medications There is no data. Problems Date Dx Coded Attending Type Code Diagnosis Diagnosed By 01/21/1123 NGUYEN ROA DO Ot Z01.818 ENCOUNTER FOR OTHER PREPROCEDURAL EXAMIN 06/10/2018 KATHERINE HERRERA DO, Ot K56.609 UNSP INTESTNL OBST, UNSP TO PARTIAL V 06/10/2018 KATHERINE HERRERA DO, Ot R10.30 LOWER ABDOMINAL PAIN, UNSPECIFIED 06/10/2018 KATHERINE HERRERA DO, Ot Z87.440 PERSONAL HISTORY OF URINARY (TRACT) INFE 06/14/2018 KATHERINE HERRERA DO, Ot K56.609 UNSP INTESTNL OBST, UNSP TO PARTIAL V 06/14/2018 KATHERINE HERRERA DO, Ot R10.30 LOWER ABDOMINAL PAIN, UNSPECIFIED 06/14/2018 KATHREINE HERRERA DO, Ot Z87.440 PERSONAL HISTORY OF URINARY (TRACT) INFE 08/03/2019 RUSTY NAIK MD Ot 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, UNSPECIFIED, UNSPE 08/03/2019 RUSTY NAIK MD Ot E78.5 HYPERLIPIDEMIA, UNSPECIFIED 08/03/2019 RUSTY NAIK MD Ot I10 ESSENTIAL (PRIMARY) HYPERTENSION 08/03/2019 RUSTY NAIK MD Ot K56.6 90 OTHER PARTIAL INTESTINAL OBSTRUCTION 08/03/2019 RUSTY NAIK MD Ot M19.9 1 PRIMARY OSTEOARTHRITIS, UNSPECIFIED SITE 08/03/2019 RUSTY NAIK MD Ot M54.9 DORSALGIA, UNSPECIFIED 08/03/2019 RUSTY NAIK MD Ot M81.0 AGE-RELATED OSTEOPOROSIS W/O CURRENT PAT 08/03/2019 RUSTY NAIK MD, Ot Z79.0 2 CARE HOME (CURRENT) USE OF ANTITHROMBOTI 08/03/2019 GUMARO GARCIA, RUSTY Corley Ot Z86.7 3 PRSNL HX OF TIA (TIA), AND CEREB INFRC W 08/03/2019 GUMARO GARCIA, RUSTY Corley Ot Z92.2 1 PERSONAL HISTORY OF ANTINEOPLASTIC CHEMO 08/04/2019 JONO GARCIA, DIDI K Ot N63.20 UNSPECIFIED LUMP IN THE LEFT BREAST, UNS 08/10/2019 JONO GARCIA, DIDI K Ot N63.20 UNSPECIFIED LUMP IN THE LEFT BREAST, UNS 08/10/2019 JONO GARCIA, DIDI K Ot N63.20 UNSPECIFIED LUMP IN THE LEFT BREAST, UNS 08/10/2019 JONO GARCIA, DIDI K Ot N63.20 UNSPECIFIED LUMP IN THE LEFT BREAST, UNS 08/15/2019 JONO GARCIA, DIDI K Ot N63.20 UNSPECIFIED LUMP IN THE LEFT BREAST, UNS 09/01/2019 JONO GARCIA, DIDI K Ot N63.20 UNSPECIFIED LUMP IN THE LEFT BREAST, UNS 09/05/2019 TYLER LAWLER Ot C50.412 MALIG NEOPLASM OF UPPER-OUTER QUADRANT O 09/05/2019 TYLER LAWLER N Ot Z85.72 PERSONAL HISTORY OF NON-HODGKIN LYMPHOMA 09/05/2019 TYLER LAWLER N Ot Z92.21 PERSONAL HISTORY OF ANTINEOPLASTIC CHEMO 09/07/2019 TYLER LAWLER N Ot C50.412 MALIG NEOPLASM OF UPPER-OUTER QUADRANT O 09/07/2019 TYLER LAWLER N Ot Z85.72 PERSONAL HISTORY OF NON-HODGKIN LYMPHOMA 09/07/2019 TYLER LAWLER N Ot Z92.21 PERSONAL HISTORY OF ANTINEOPLASTIC CHEMO 09/14/2019 TYLER LAWLER N Ot C50.912 MALIGNANT NEOPLASM OF UNSPECIFIED SITE O 09/21/2019 JONO GARCIA, DIDI K Ot N63.20 UNSPECIFIED LUMP IN THE LEFT BREAST, UNS Procedures There is no data. Results Test [...] urinalysis with reflex to culture NO NRG Complete blood count (CBC) with automate d white blood cell (WBC) differential - 07/31/19 07:40 Blood leukocytes automated count (number/volume) 11.6 10*3/uL 4.3-11.0 Blood erythrocytes automated count (number/volume) 4.32 10*6/uL 4.35-5.85 Venous blood hemoglobin measurement (mass/volume) 13.5 g/dL 11.5-16.0 Blood hematocrit (volume fraction) 40 % 35-52 Automated erythrocyte mean corpuscular volume 92 [ foz_us] 80-99 Automated erythrocyte mean corpuscular h emoglobin (mass per erythrocyte) 31 pg 25-34 Automated erythrocyte mean corpuscular h emoglobin concentration measurement (mass/volume) 34 g/dL 32-36 Automated erythrocyte distribution width ratio 14. 1 % 10.0- 14.5 Automated blood platelet count (count/volume) 388 10*3/uL 130-400 Automated blood platelet mean volume measurement 10.8 [foz_us] 7.4-10.4 Automated blood neutrophils/100 leukocytes 81 % 42-75 Automated blood lymphocytes/100 leukocytes 12 % 12-44 Blood monocytes/100 leukocytes 7 % 0-12 Automated blood eosinophils/100 leukocytes 0 % 0-10 Automated blood basophils/100 leukocytes 0 % 0-10 Blood neutrophils automated count (number/volume) 9.3 10*3 1.8-7.8 Blood lymphocytes automated count (number/volume) 1.3 10*3 1.0-4.0 Blood monocytes automated count (number/volume) 0. 8 10*3 0.0-1.0 Automated eosinophil count 0.0 10*3/uL 0 .0-0.3 Automated blood basophil count (count/volume) 0.0 10*3/uL 0.0-0.1 Comprehensive metabolic panel - 07/31/19 07:40 Serum or plasma sodium measurement (moles/volume) 139 mmol/L 135-145 Serum or plasma potassium measurement (moles/volume) 4.2 mmol/L 3.6-5.0 Serum or plasma chloride measurement (moles/volume) 105 mmol/L 98-107 Carbon dioxide 21 mmol/L 21-32 Serum or plasma anion gap determination (moles/volume) 13 mmol/L 5-14 Serum or plasma urea nitrogen measurement (mass/volume ) 8 mg/dL 7-18 Serum or plasma creatinine measurement (mass/volume) 0.81 mg/dL 0.60-1.30 Serum or plasma urea nitrogen/creatinine mass ratio 10 NRG Serum or plasma creatinine measurement w ith calculation of estimated glomerular filtration rate > NRG Serum or plasma glucose measurement (mass/volume) 129 mg/dL 70-105 Serum or plasma calcium measurement (mass/volume) 9.4 mg/dL 8.5-10.1 Serum or plasma total bilirubin measurement (mass/volu me) 1.1 mg/dL 0.1-1.0 Serum or plasma alkaline phosphatase onelia surement (enzymatic activity/volume) 116 U/L 40-136 Serum or plasma aspartate aminotransfera se measurement (enzymatic activity/volume) 25 U/L 5-34 Serum or plasma alanine aminotransferase measurement (enzymatic activity/volume) 20 U/L 0-55 Serum or plasma protein measurement (mass/volume) 7.0 g/dL 6.4-8.2 Serum or plasma albumin measurement (mass/volume) 4.2 g/dL 3.2-4.5 CALCIUM CORRECTED 9.2 mg/dL 8.5-10.1 Magnesium - 07/31/19 07:40 Magnesium 2.0 mg/dL 1.6-2.4 Serum or plasma C reactive protein measu rement (mass/volume) - 07/31/19 07:40 Serum or plasma C reactive protein measurement (mass/v olume) 0.40 mg/dL 0.00-0.50 Complete urinalysis with reflex to cultu re - 07/31/19 08:05 Urine color determination YELLOW NRG Urine clarity determination CLEAR NR G Urine pH measurement by test strip 6.0 5-9 Specific gravity of urine by test strip 1.025 1.016-1.022 Urine protein assay by test strip, semi-quantitative 1+ NEGATIVE Urine glucose detection by automated test strip NE GATIVE NEGATIVE Erythrocytes detection in urine sediment by light micr oscopy 1+ NEGATIVE Urine ketones detection by automated test strip NE GATIVE NEGATIVE Urine nitrite detection by test strip NEGATIVE NEGATIVE Urine total bilirubin detection by test strip NEGA TIVE NEGATIVE Urine urobilinogen measurement by automated test strip (mass/volume) 0.2 mg/dL < = 1.0 Urine leukocyte esterase detection by dipstick NEG ATIVE NEGATIVE Automated urine sediment erythrocyte cou nt by microscopy (number/high power field) [HPF] NRG Automated urine sediment leukocyte count by microscopy (number/high power field) NONE NRG Bacteria detection in urine sediment by light microsco py TRACE NRG Squamous epithelial cells detection in u rine sediment by light microscopy RARE NRG Crystals detection in urine sediment by light microsco py PRESENT NRG Casts detection in urine sediment by light microscopy NONE NRG Mucus detection in urine sediment by light microscopy MODERATE NRG Complete urinalysis with reflex to culture NO NRG Amorphous sediment detection in urine sediment by ligh t microscopy RARE SHERYL URATES NRG Complete blood count (CBC) with automate d white blood cell (WBC) differential - 08/01/19 05:20 Blood leukocytes automated count (number/volume) 10.5 10*3/uL 4.3-11.0 Blood erythrocytes automated count (number/volume) 3.71 10*6/uL 4.35-5.85 Venous blood hemoglobin measurement (mass/volume) 11.7 g/dL 11.5-16.0 Blood hematocrit (volume fraction) 35 % 35-52 Automated erythrocyte mean corpuscular volume 95 [ foz_us] 80-99 Automated erythrocyte mean corpuscular h emoglobin (mass per erythrocyte) 32 pg 25-34 Automated erythrocyte mean corpuscular h emoglobin concentration measurement (mass/volume) 33 g/dL 32-36 Automated erythrocyte distribution width ratio 13. 8 % 10.0- 14.5 Automated blood platelet count (count/volume) 306 10*3/uL 130-400 Automated blood platelet mean volume measurement 11.2 [foz_us] 7.4-10.4 Automated blood neutrophils/100 leukocytes 79 % 42-75 Automated blood lymphocytes/100 leukocytes 14 % 12-44 Blood monocytes/100 leukocytes 7 % 0-12 Automated blood eosinophils/100 leukocytes 0 % 0-10 Automated blood basophils/100 leukocytes 0 % 0-10 Blood neutrophils automated count (number/volume) 8.3 10*3 1.8-7.8 Blood lymphocytes automated count (number/volume) 1.5 10*3 1.0-4.0 Blood monocytes automated count (number/volume) 0. 7 10*3 0.0-1.0 Automated eosinophil count 0.0 10*3/uL 0 .0-0.3 Automated blood basophil count (count/volume) 0.0 10*3/uL 0.0-0.1 Comprehensive metabolic panel - 08/01/19 05:20 Serum or plasma sodium measurement (moles/volume) 139 mmol/L 135-145 Serum or plasma potassium measurement (moles/volume) 3.9 mmol/L 3.6-5.0 Serum or plasma chloride measurement (moles/volume) 105 mmol/L 98-107 Carbon dioxide 23 mmol/L 21-32 Serum or plasma anion gap determination (moles/volume) 11 mmol/L 5-14 Serum or plasma urea nitrogen measurement (mass/volume ) 8 mg/dL 7-18 Serum or plasma creatinine measurement (mass/volume) 0.78 mg/dL 0.60-1.30 Serum or plasma urea nitrogen/creatinine mass ratio 10 NRG Serum or plasma creatinine measurement w ith calculation of estimated glomerular filtration rate > NRG Serum or plasma glucose measurement (mass/volume) 112 mg/dL 70-105 Serum or plasma calcium measurement (mass/volume) 8.6 mg/dL 8.5-10.1 Serum or plasma total bilirubin measurement (mass/volu me) 0.9 mg/dL 0.1-1.0 Serum or plasma alkaline phosphatase onelia surement (enzymatic activity/volume) 87 U/L 40-136 Serum or plasma aspartate aminotransfera se measurement (enzymatic activity/volume) 20 U/L 5-34 Serum or plasma alanine aminotransferase measurement (enzymatic activity/volume) 13 U/L 0-55 Serum or plasma protein measurement (mass/volume) 5.6 g/dL 6.4-8.2 Serum or plasma albumin measurement (mass/volume) 3.5 g/dL 3.2-4.5 CALCIUM CORRECTED 9.0 mg/dL 8.5-10.1 Blood CBC with ordered manual differenti al panel - 08/02/19 05:00 Blood leukocytes automated count (number/volume) 9.4 10*3/uL 4.3-11.0 Blood erythrocytes automated count (number/volume) 3.25 10*6/uL 4.35-5.85 Venous blood hemoglobin measurement (mass/volume) 10.0 g/dL 11.5-16.0 Blood hematocrit (volume fraction) 31 % 35-52 Automated erythrocyte mean corpuscular volume 95 [ foz_us] 80-99 Automated erythrocyte mean corpuscular h emoglobin (mass per erythrocyte) 31 pg 25-34 Automated erythrocyte mean corpuscular h emoglobin concentration measurement (mass/volume) 32 g/dL 32-36 Automated erythrocyte distribution width ratio 13. 9 % 10.0- 14.5 Automated blood platelet count (count/volume) 267 10*3/uL 130-400 Automated blood platelet mean volume measurement 11.4 [foz_us] 7.4-10.4 Automated blood neutrophils/100 leukocytes 67 % 42-75 Automated blood lymphocytes/100 leukocytes 22 % 12-44 Blood monocytes/100 leukocytes 5 % NRG Automated blood eosinophils/100 leukocytes 1 % 0-10 Automated blood basophils/100 leukocytes 0 % 0-10 Blood neutrophils automated count (number/volume) 6.3 10*3 1.8-7.8 Blood lymphocytes automated count (number/volume) 2.1 10*3 1.0-4.0 Blood monocytes automated count (number/volume) 0. 9 10*3 0.0-1.0 Automated eosinophil count 0.1 10*3/uL 0 .0-0.3 Automated blood basophil count (count/volume) 0.0 10*3/uL 0.0-0.1 Manual blood segmented neutrophils/100 leukocytes 69 % NRG Manual blood lymphocytes/100 leukocytes 24 % NRG Manual eosinophils/100 leukocytes in nose 2 % NRG Blood hypochromia detection by light microscopy SL IGHT NRG Blood blood smear finding identification by light micr oscopy NO NRG Whole blood basic metabolic panel - 07/23 05:00 Serum or plasma sodium measurement (moles/volume) 140 mmol/L 135-145 Serum or plasma potassium measurement (moles/volume) 3.1 mmol/L 3.6-5.0 Serum or plasma chloride measurement (moles/volume) 106 mmol/L 98-107 Carbon dioxide 24 mmol/L 21-32 Serum or plasma anion gap determination (moles/volume) 10 mmol/L 5-14 Serum or plasma urea nitrogen measurement (mass/volume ) 9 mg/dL 7-18 Serum or plasma creatinine measurement (mass/volume) 0.74 mg/dL 0.60-1.30 Serum or plasma urea nitrogen/creatinine mass ratio 12 NRG Serum or plasma creatinine measurement w ith calculation of estimated glomerular filtration rate > NRG Serum or plasma glucose measurement (mass/volume) 92 mg/dL 70-105 Serum or plasma calcium measurement (mass/volume) 8.0 mg/dL 8.5-10.1 Whole blood basic metabolic panel - 07/23 03/13 05:51 Serum or plasma sodium measurement (moles/volume) 141 mmol/L 135-145 Serum or plasma potassium measurement (moles/volume) 3.5 mmol/L 3.6-5.0 Serum or plasma chloride measurement (moles/volume) 107 mmol/L 98-107 Carbon dioxide 21 mmol/L 21-32 Serum or plasma anion gap determination (moles/volume) 13 mmol/L 5-14 Serum or plasma urea nitrogen measurement (mass/volume ) 7 mg/dL 7-18 Serum or plasma creatinine measurement (mass/volume) 0.71 mg/dL 0.60-1.30 Serum or plasma urea nitrogen/creatinine mass ratio 10 NRG Serum or plasma creatinine measurement w ith calculation of estimated glomerular filtration rate > NRG Serum or plasma glucose measurement (mass/volume) 94 mg/dL 70-105 Serum or plasma calcium measurement (mass/volume) 8.3 mg/dL 8.5-10.1 Encounters ACCT No. Visit Date/Time Discharge Status Pt. Type Provider Facility Loc./Unit Complaint [id number] 09/21/2019 05:50:00 11:24:00 DIS Outpatient NGUYEN ROA DO [facility] PREOP DUCTAL CARCINOMA LEFT B REAST [id number] 09/12/2019 08:34:00 23:59:59 CLS Outpatient TYLER LAWLER V [facility] RAD DUCTAL CARCINOMA. [id number] 09/01/2019 09:18:00 23:59:59 CLS Outpatient TYLER LAWLER V [facility] ONC [id number] 08/10/2019 13:33:00 23:59:59 CLS Outpatient JONO GARCIA, DIDI Hernandez [facility] RAD BREAST MASS,LT [id number] 07/31/2019 10:30:00 11:41:00 DIS Inpatient GUMARO GARCIA, RUSTY Corley [facility] 4TH SMALL BOWEL OBSTRUCTION [id number] 06/10/2018 13:27:00 18:13:00 DIS Emergency KATHERINE HERRERA DO [facility] ER FS VOMITING [id number] 09/28/2019 08:00:00 P EN Preadmit NGUYEN ROA DO [facility] [address] CARD DUCTAL CARCINOMA LEFT BREAST
[2019-09-28] MEDS ORDERED: ceFAZolin INJECTION 1,000 MG in WATER (STERILE) FOR INJECTION 10 ML IV ONE (06:30)
[2019-09-28] MEDS ORDERED: LIDOCAINE 1% INJ 20 ML 20 ML VIAL INJ ONE (07:30)
[2019-09-28] MEDS ORDERED: LIDOCAINE 1% INJ 20 ML 20 ML VIAL ONE ×2 (07:34→09:15)
[2019-09-28] MEDS ORDERED: ceFAZolin INJECTION 1,000 MG ONE (09:06)
[2019-09-28] MEDS ORDERED: WATER (STERILE) FOR INJECTION 10 ML ONE (09:06)
[2019-09-28] MEDS ORDERED: METHYLENE BLUE 0.5% (PROVAYBLUE) 50 mg/10 ml vial IV ONE (09:14)
[2019-09-28] MEDS ORDERED: BUP/EPI 0.5% 1:200,000 (MARCAINE) 10ML VIAL IJ ONE (09:15)
[2019-09-28] MEDS ORDERED: 0.9% SODIUM CHLORIDE PF INJ 20 ML VIAL ONE (09:15)
--- NOTE | 2019-09-28 10:19 | Diagnostic Imaging Report ---
INDICATION: Left breast carcinoma. EXAM: Patient undergoing needle localization hookwire placement. Unilateral left 2-D CC and ML mammography was performed, status post hookwire placement. Images demonstrate hookwire adjacent to the spiculated mass and marker clip in the upper and outer aspect of the left breast. IMPRESSION: Hookwire placement, as described. Dictated by: Dictated on workstation # [id number]
--- NOTE | 2019-09-28 10:21 | Diagnostic Imaging Report ---
INDICATION: Left breast carcinoma. PROCEDURE: The patient presents for ultrasound-guided hookwire placement. DESCRIPTION OF PROCEDURE: The patient was brought to the procedure room, placed on table in the supine position. Ultrasound imaging of the left breast was performed to evaluate appropriate entry site. The left breast was then prepped and draped in the usual sterile fashion. A small amount of 1% lidocaine was utilized for local anesthesia. Localizing needle was advanced and placed through the hypoechoic mass at the 2:00 location of the left breast, 6 cm from the nipple. The hookwire was then deployed. Needle was removed. Hookwire was affixed to the patient's skin. The patient tolerated the procedure well and was sent for postprocedure mammogram in satisfactory condition. IMPRESSION: Successful ultrasound-guided hookwire placement through the spiculated mass at the 2:00 location of the left breast. Dictated by: Dictated on workstation # [id number]
[2019-09-28] MEDS ORDERED: proPOfol 200 MG/20 ML (DIPRIVAN) VIAL IV ONE (10:32)
[2019-09-28] MEDS ORDERED: SEVOFLURANE (ULTANE) 15 ML INHAL SOLN ONE ×7 (10:32→12:45)
[2019-09-28] MEDS ORDERED: ONDANSETRON 4 MG/2 ML (SDV) Z0FRAN ONE (10:32)
[2019-09-28] MEDS ORDERED: LIDOCAINE PF 2% 5 ML (XYLOCAINE) VIAL ONE (10:32)
[2019-09-28] MEDS ORDERED: fentaNYL INJECTION 100 MCG/2 ML AMP ONE (10:33)
[2019-09-28] MEDS ORDERED: MIDAZOLAM 2 MG/2 ML (VERSED) VIAL ONE (10:33)
[2019-09-28] MEDS: LACTATED RINGERS 1,000 ML IV PRN ×2 (11:00→12:15)
--- NOTE | 2019-09-28 11:06 | Progress Note-Pre Operative ---
Pre-Operative Progress Note H&P Reviewed The H&P was reviewed, patient examined and no changes noted. Date Seen by Provider: Sep 28, 2019 Time Seen by Provider: 11:06 Date H&P Reviewed: Sep 28, 2019 Time H&P Reviewed: 11:06 Pre-Operative Diagnosis: left breast cancer NGUYEN ROA DO Sep 28, 2019 11:06
--- NOTE | 2019-09-28 12:22 | Diagnostic Imaging Report ---
INDICATION: Left breast carcinoma, status post lumpectomy. Specimen radiograph was provided, status post lumpectomy. The hookwire is located within the sample. A spiculated mass with associated microcalcifications and marker clip are also located within the specimen. IMPRESSION: Satisfactory specimen radiograph. Dictated by: Dictated on workstation # [id number]
[2019-09-28] MEDS ORDERED: HYDR-4226 PO (12:51)
[2019-09-28] MEDS ORDERED: DOCU-143 PO (12:51)
--- NOTE | 2019-09-28 12:53 | Discharge Inst-Simple/Standard ---
Discharge Inst-Standard Discharge Medications New, Converted or Re-Newed RX: RX on Chart Patient Instructions/Follow Up Plan of Care/Instructions/FU: 2 weeks Daniel Activity as Tolerated: No Discharge Diet: Regular Diet Other Inst to Patient Follow up Appt: Make appointment for 2 week. Restart plavix and aspirin in 3 days. Instructions: No lifting greater than 10 pounds. No strenuous activity. May shower in 24 hours, no tub bath or soaking. Use incentive spirometer at home as directed. No Smoking Skin/Wound Care: You have special glue over your incision that will fall off on it's own. Symptoms to Report: Appetite Changes, Extremity Discoloration, Numbness/Tingling, Swelling Increased, Bleeding Excessive, Eyesight Changes, Pain Increased, Urine Color Change, Constipation(Persistent), Fever over 101 degree F, Pain/Pressure in chest, Urinating Difficulty, Cough Up/Vomit Blood, Heart Beat Irreg/Pounding, Pain/Pressure in jaw, Vaginal Bleeding Increase, Cramps in feet or legs, Lightheadedness, Pain/Pressure in shoulder, Diarrhea(Persistent), Memory Changes Suddenly, Questions/Concerns, Weight gain consecutive days, Dizziness/Fainting, Nausea/Vomiting, Shortness of Breath, Weight gain over 2 pounds If questions or concerns contact your physician Or seek help at emergency department. NGUYEN ROA DO Sep 28, 2019 12:53
--- NOTE | 2019-09-28 12:56 | Progress Note-Post Operative ---
Post-Operative Progess Note Surgeon (s)/Community Facilitator (s) Surgeon NGUYEN ROA DO Community Facilitator: Dr. Clark Pre-Operative Diagnosis left breast cancer Post-Operative Diagnosis same Procedure & Operative Findings Date of Procedure 09/28/19 Procedure Performed/Findings left wire localized lumpectomy with sentinel node biopsy Anesthesia Type gen Estimated Blood Loss Estimated blood loss (mL): min Specimens/Packing Specimens Removed left breast cancer, sentinel nodes NGUYEN ROA DO Sep 28, 2019 12:56
[2019-09-28] MEDS ORDERED: ONDANSETRON 4 MG/2 ML (SDV) Z0FRAN IVP PRN (13:00)
[2019-09-28] MEDS ORDERED: HYDROmorphone 2 MG/ML VIAL (DILAUDID) ONE (13:00)
[2019-09-28] MEDS ORDERED: HYDROmorphone 2 MG/ML VIAL (DILAUDID) IV ONE (13:00)
[2019-09-28] MEDS ORDERED: fentaNYL INJECTION 100 MCG/2 ML AMP IVP ONE (13:00)
--- NOTE | 2019-09-28 13:01 | Anesthesia-General Post-Op ---
General Patient Condition Mental Status/LOC: Same as Preop Cardiovascular: Satisfactory Nausea/Vomiting: Absent Respiratory: Satisfactory Pain: Controlled Complications: Absent Post Op Complications Complications None Follow Up Care/Instructions Patient Instructions None needed. Anesthesia/Patient Condition Patient Condition Patient is doing well, no complaints, stable vital signs, no apparent adverse anesthesia problems. No complications reported per nursing. MISSY EVANS CRNA Sep 28, 2019 13:01
[2019-09-28] MEDS ORDERED: HYDROcodone/APAP 5 MG/325 MG (LORTAB) TAB PO ONE (14:15)
--- NOTE | 2019-09-28 16:03 | Diagnostic Imaging Report ---
INDICATION: Left breast carcinoma. TECHNIQUE: A total of 1 mCi of filtered technetium 99m sulfur colloid was injected in 4 separate aliquots in a periareolar distribution of the left breast. Imaging was then performed after a 4 hour delay. FINDINGS: Activity is seen in the periareolar region. There is vague uptake in the left axilla, suggestive of a sentinel node. This was marked on the patient's skin. IMPRESSION: Left breast lymphoscintigraphy for identification of sentinel node. Dictated by: Dictated on workstation # [id number]
--- NOTE | 2019-09-29 07:56 | OPERATIVE REPORT ---
DATE OF SERVICE: 09/28/2019 PREOPERATIVE DIAGNOSIS: Left breast cancer. POSTOPERATIVE DIAGNOSIS: Left breast cancer. PROCEDURE: Left breast wire localized lumpectomy with sentinel lymph node biopsy. SURGEON: Nguyen Sanchez DO ELEVATOR INSTALLER: Dr. Clark, assisted in retraction, dissection and closure. ANESTHESIA: General. ESTIMATED BLOOD LOSS: Minimal. COMPLICATIONS: None. INDICATIONS: The patient is a 73-year-old female with a palpable mass, which workup was found to have left breast cancer. The patient understands risks and benefits of procedure and she wishes to proceed. Consent was signed in the chart. DESCRIPTION OF PROCEDURE: The patient was taken to the operating suite. She was prepped and draped in sterile fashion. Timeout was performed. The wire was previously placed. Incision was made to where the wire was able to be localized and the subcutaneous tissues were then mobilized to where a circumferential amount of tissue to be removed around the wire until the mass could be removed in its entirety. Dissection was continued to be taken around until the mass and surrounding tissues were removed. This was marked for anatomical positioning and sent for radiology, which demonstrated a mass and specimen was removed in its entirety. The wound was then irrigated with copious amounts of irrigation and hemostasis was achieved. The wound cavity had clips placed within the cavity for marking. [place] nodes were sampled. First sentinel node was located with a count of 292. This was grasped and with a Jackelyn and dissected around with cautery. It was dark in color due to the dye and was the hottest node able to be found. This was sent as a specimen. No other palpable nodes. Only one other node was within 10% that was greater than 10% of the node, which was grasped, elevated and dissected around and removed. No other palpable pathology noted. Wounds were then irrigated with copious amounts of irrigation. The sentinel node #1 10-second count was 2186. Hemostasis was achieved. Subcutaneous tissues were then closed using 3-0 Vicryl in a running subcuticular fashion. Skin was then closed using 4-0 Monocryl in a running subcuticular fashion. The skin was then washed and dried and Skin Affix was placed over the incisions. The patient tolerated procedure well without any complications. She was taken to recovery room in stable condition. Job ID: [id number] DocumentID: [id number] Dictated Date: 09/28/2019 20:37:27 Engineering Assistant Date: 09/29/2019 07:50:41 Dictated By: NGUYEN SANCHEZ DO
[2019-10-19] MEDS ORDERED: DOCU-143 PO (12:47)
[2019-10-19] MEDS ORDERED: HYDR-4226 PO (12:47)
== END 2019-09-28 15:35 | disposition home or self-care (01) ==
LOC: CARD 06:02
PROVIDERS: ATTEND Surgery
DX: C50.412 Malignant neoplasm of upper-outer quadrant of left female breast (principal); I10 Essential (primary) hypertension; K21.9 Gastro-esophageal reflux disease without esophagitis; M81.0 Age-related osteoporosis without current pathological fracture; M06.9 Rheumatoid arthritis, unspecified; Z79.82 Long term (current) use of aspirin; Z79.899 Other long term (current) drug therapy; Z88.5 Allergy status to narcotic agent; Z90.710 Acquired absence of both cervix and uterus; Z86.73 Personal history of transient ischemic attack (TIA), and cerebral infarction without residual deficits
CPT/HCPCS: 19285; 19301; 38505; 76098; 77065; 78195; 87081; 88305; 88307; 88342; A4648; A9541; G0279

== ENCOUNTER 2019-10-13 13:00 | Outpatient (CLI) | payer MEDICARE ==
[~2019-10-13] VITALS: Ht 152.4 cm; Wt 67.3 kg
[~2019-10-13 13:00] MED LIST changes: -ACHD5005 PO; -ASPI-1238 PO; +ASPI-983 PO; +DOCU-143 PO; +HYDR-3812 PO; +HYDR-4226 PO
== END 2019-10-13 13:12 | disposition home or self-care (01) ==
LOC: PREOP 13:00
PROVIDERS: ATTEND Surgery
DX: Z01.818 Encounter for other preprocedural examination (principal)

== ENCOUNTER 2019-10-19 08:24 | Day surgery (SDC) | payer MEDICARE ==
[~2019-10-19] VITALS: Ht 152 cm; Wt 67.0 kg
[2019-10-19] VITALS (11 sets, daily range): BP systolic 142–193; BP diastolic 62–90
[2019-10-19] MEDS ORDERED: ceFAZolin INJECTION 1,000 MG in WATER (STERILE) FOR INJECTION 10 ML IV ONE (09:00)
--- NOTE | 2019-10-19 09:12 | Progress Note-Pre Operative ---
Pre-Operative Progress Note H&P Reviewed The H&P was reviewed, patient examined and no changes noted. Date Seen by Provider: Oct 19, 2019 Time Seen by Provider: 09:11 Date H&P Reviewed: Oct 19, 2019 Time H&P Reviewed: 09:11 Pre-Operative Diagnosis: left breast cancer NGUYEN ROA DO Oct 19, 2019 09:12
[2019-10-19] MEDS: LACTATED RINGERS 1,000 ML IV PRN ×2 (09:19→11:53)
[2019-10-19] MEDS ORDERED: BUP/EPI 0.5% 1:200,000 (MARCAINE) 10ML VIAL IJ ONE (09:23)
[2019-10-19] MEDS ORDERED: fentaNYL INJECTION 100 MCG/2 ML AMP ONE ×2 (09:41→11:35)
[2019-10-19] MEDS ORDERED: LIDOCAINE PF 2% 5 ML (XYLOCAINE) VIAL ONE (09:41)
[2019-10-19] MEDS ORDERED: ONDANSETRON 4 MG/2 ML (SDV) Z0FRAN ONE (09:41)
[2019-10-19] MEDS ORDERED: MIDAZOLAM 2 MG/2 ML (VERSED) VIAL ONE (09:41)
[2019-10-19] MEDS ORDERED: proPOfol 200 MG/20 ML (DIPRIVAN) VIAL IV ONE (09:41)
[2019-10-19] MEDS ORDERED: SEVOFLURANE (ULTANE) 15 ML INHAL SOLN ONE ×2 (09:41→11:13)
[2019-10-19] MEDS ORDERED: fentaNYL INJECTION 100 MCG/2 ML AMP IVP ONE (11:45)
[2019-10-19] MEDS ORDERED: MEPERIDINE (DEMEROL) INJ 50 MG/ML IVP ONE (11:45)
[2019-10-19] MEDS ORDERED: ONDANSETRON 4 MG/2 ML (SDV) Z0FRAN IVP PRN (11:45)
[2019-10-19] MEDS ORDERED: HYDROcodone/APAP 5 MG/325 MG (LORTAB) TAB ONE (12:36)
[2019-10-19] MEDS ORDERED: HYDROcodone/APAP 5 MG/325 MG (LORTAB) TAB PO ONE (12:45)
[2019-10-19] MEDS ORDERED: HYDR-4226 PO (12:47)
[2019-10-19] MEDS ORDERED: DOCU-143 PO (12:47)
--- NOTE | 2019-10-19 12:49 | Discharge Inst-Simple/Standard ---
Discharge Inst-Standard Discharge Medications New, Converted or Re-Newed RX: RX on Chart Patient Instructions/Follow Up Plan of Care/Instructions/FU: 2 WEEKS CRISPIN Activity as Tolerated: No Discharge Diet: Regular Diet Other Inst to Patient Follow up Appt: Make appointment for 2 week. Instructions: No lifting greater than 10 pounds. No strenuous activity. May shower in 24 hours, no tub bath or soaking. Use incentive spirometer at home as directed. No Smoking Skin/Wound Care: You have special glue over your incision that will fall off on it's own. May remove bandages in 48 hours. Wear supportive bra and may redress incision area daily if needed Symptoms to Report: Appetite Changes, Extremity Discoloration, Numbness/Tingling, Swelling Increased, Bleeding Excessive, Eyesight Changes, Pain Increased, Urine Color Change, Constipation(Persistent), Fever over 101 degree F, Pain/Pressure in chest, Urinating Difficulty, Cough Up/Vomit Blood, Heart Beat Irreg/Pounding, Pain/Pressure in jaw, Vaginal Bleeding Increase, Cramps in feet or legs, Ligh theadedness, Pain/Pressure in shoulder, Diarrhea(Persistent), Memory Changes Suddenly, Questions/Concerns, Weight gain consecutive days, Dizziness/Fainting, Nausea/Vomiting, Shortness of Breath, Weight gain over 2 pounds If questions or concerns contact your physician Or seek help at emergency department. NGUYEN ROA DO Oct 19, 2019 12:49
--- NOTE | 2019-10-19 12:53 | Progress Note-Post Operative ---
Post-Operative Progess Note Surgeon (s)/Field Reporter (s) Surgeon NGUYEN ROA DO Field Reporter: Dr. Clark to assit in retraction dissection and closure Pre-Operative Diagnosis left breast cancer Post-Operative Diagnosis same Procedure & Operative Findings Date of Procedure 10/19/19 Procedure Performed/Findings re-excision left breast Anesthesia Type gen Estimated Blood Loss Estimated blood loss (mL): minimal Specimens/Packing Specimens Removed left breast anterior margin NGUYEN ROA DO Oct 19, 2019 12:53
--- NOTE | 2019-10-20 06:12 | OPERATIVE REPORT ---
DATE OF SERVICE: PREOPERATIVE DIAGNOSIS: Left breast cancer. POSTOPERATIVE DIAGNOSIS: Left breast cancer. PROCEDURE: Left breast reexcision. SURGEON: Nguyen Sanchez DO BREAKER LAYER: Dr. lCark, assisted in retraction, dissection and closure. ANESTHESIA: General. ESTIMATED BLOOD LOSS: Minimal. COMPLICATIONS: None. INDICATIONS: The patient is a 73-year-old female with left breast ductal carcinoma. She underwent wire localized lumpectomy with sentinel node biopsy. 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 I discussed with Dr. Molina and also with the patient and we decided to proceed with reexcision of the anterior margin. Consent was signed and on the chart. DESCRIPTION OF PROCEDURE: The patient was taken to the operating suite. She was prepped and draped in sterile fashion. Timeout was performed. An elliptical incision over the anterior portion of the left breast was made. Cautery was used to dissect down until the lateral aspects of the biopsy cavity were present and the anterior margin was removed. There was clot within the cavity, which was suctioned. The wound was irrigated and suctioned and hemostasis was achieved. The specimen had the skin labeled, short suture superior and long suture lateral. The wound was irrigated again and suctioned. Hemostasis was achieved in the cavity, clips were placed on the circumferential area of the cavity. The subcutaneous tissues were then reapproximated using 3-0 Vicryl and skin was then closed using 4-0 Monocryl in a running subcuticular fashion. The patient tolerated procedure well without any complications. She was taken to recovery room in stable condition. RECOMMENDATIONS: The patient will follow up in 2 weeks to discuss pathology results. Any issues before that be seen at that time. Job ID: [id number] DocumentID: [id number] Dictated Date: 10/19/2019 20:09:39 Turbine Inspector Date: 10/20/2019 06:12:14 Dictated By: NGUYEN SANCHEZ DO
== END 2019-10-19 13:45 | disposition home or self-care (01) ==
LOC: SDC 08:24
PROVIDERS: ATTEND Surgery
DX: C50.412 Malignant neoplasm of upper-outer quadrant of left female breast (principal); C85.90 Non-Hodgkin lymphoma, unspecified, unspecified site; I10 Essential (primary) hypertension; E78.5 Hyperlipidemia, unspecified; M06.9 Rheumatoid arthritis, unspecified; K21.9 Gastro-esophageal reflux disease without esophagitis; K59.09 Other constipation; M54.9 Dorsalgia, unspecified; G89.29 Other chronic pain; Z86.73 Personal history of transient ischemic attack (TIA), and cerebral infarction without residual deficits; Z79.82 Long term (current) use of aspirin; Z79.899 Other long term (current) drug therapy; Z88.5 Allergy status to narcotic agent; Z11.2 Encounter for screening for other bacterial diseases
CPT/HCPCS: 87081; 94664

== ENCOUNTER → 2019-11-30 | Outpatient (RCR) | payer MEDICARE, OTHER ==
[2019-09-01 09:34] LABS: BASOPHILS # (AUTO) 0.1 10^3/uL (0.0-0.1); BASOPHILS % (AUTO) 1 % (0-10); EOSINOPHILS # (AUTO) 0.1 10^3/uL (0.0-0.3); EOSINOPHILS % (AUTO) 2 % (0-10); HEMATOCRIT 39 % (35-52); HEMOGLOBIN 12.6 G/DL (11.5-16.0); LYMPHOCYTES # (AUTO) 1.6 X 10^3 (1.0-4.0); LYMPHOCYTES % (AUTO) 23 % (12-44); MEAN CORPUSCULAR HEMOGLOBIN 31 PG (25-34); MEAN CORPUSCULAR HGB CONC 33 G/DL (32-36); MEAN CORPUSCULAR VOLUME 94 FL (80-99); MEAN PLATELET VOLUME 11.1 FL (7.4-10.4); MONOCYTES # (AUTO) 0.6 X 10^3 (0.0-1.0); MONOCYTES % (AUTO) 8 % (0-12); NEUTROPHILS # (AUTO) 4.7 X 10^3 (1.8-7.8); NEUTROPHILS % (AUTO) 67 % (42-75); PLATELET COUNT 281 10^3/uL (130-400)
[2019-09-01 09:49] LABS: ALANINE AMINOTRANSFERASE 21 U/L (0-55); ALBUMIN 4.3 GM/DL (3.2-4.5); ALKALINE PHOSPHATASE 100 U/L (40-136); BILIRUBIN,TOTAL 0.4 MG/DL (0.1-1.0); BUN/CREATININE RATIO 9; CALCIUM 9.5 MG/DL (8.5-10.1); CARBON DIOXIDE 19 MMOL/L (21-32); CHLORIDE 109 MMOL/L (98-107); CREATININE SERUM 0.79 MG/DL (0.60-1.30); GFR ESTIMATED > 60; GLUCOSE 113 MG/DL (70-105); POTASSIUM 3.9 MMOL/L (3.6-5.0); SODIUM 141 MMOL/L (135-145); TOTAL PROTEIN 6.6 GM/DL (6.4-8.2)
[2019-11-20 11:02] LABS: BASOPHILS % (AUTO) 1 % (0-10); EOSINOPHILS # (AUTO) 0.2 10^3/uL (0.0-0.3); EOSINOPHILS % (AUTO) 3 % (0-10); HEMATOCRIT 37 % (35-52); HEMOGLOBIN 12.2 g/dL (11.5-16.0); LYMPHOCYTES # (AUTO) 1.2 10^3/uL (1.0-4.0); LYMPHOCYTES % (AUTO) 17 % (12-44); MEAN CORPUSCULAR HEMOGLOBIN 31 pg (25-34); MEAN CORPUSCULAR HGB CONC 33 g/dL (32-36); MEAN CORPUSCULAR VOLUME 95 fL (80-99); MEAN PLATELET VOLUME 10.9 fL (9.0-12.2); MONOCYTES # (AUTO) 0.6 10^3/uL (0.0-1.0); MONOCYTES % (AUTO) 8 % (0-12); NEUTROPHILS % (AUTO) 71 % (42-75); PLATELET COUNT 283 10^3/uL (130-400)
[2019-11-20 11:21] LABS: ALANINE AMINOTRANSFERASE 15 U/L (0-55); ALBUMIN 4.2 GM/DL (3.2-4.5); ALKALINE PHOSPHATASE 117 U/L (40-136); BILIRUBIN,TOTAL 0.3 MG/DL (0.1-1.0); BUN/CREATININE RATIO 16; CALCIUM 9.4 MG/DL (8.5-10.1); CARBON DIOXIDE 22 MMOL/L (21-32); CHLORIDE 108 MMOL/L (98-107); CREATININE SERUM 0.82 MG/DL (0.60-1.30); GFR ESTIMATED > 60; GLUCOSE 105 MG/DL (70-105); POTASSIUM 4.2 MMOL/L (3.6-5.0); SODIUM 140 MMOL/L (135-145); TOTAL PROTEIN 6.7 GM/DL (6.4-8.2)
[~2019-11-30] MED LIST changes: +ACHD5005 PO; +ASPI-1238 PO; -ASPI-983 PO; -HYDR-3812 PO
== END | disposition home or self-care (01) ==
LOC: ONC 09-01 09:18
PROVIDERS: ATTEND Internal Medicine Hematology & Oncology
DX: Z51.0 Encounter for antineoplastic radiation therapy (principal); C50.412 Malignant neoplasm of upper-outer quadrant of left female breast; Z85.72 Personal history of non-Hodgkin lymphomas; Z92.21 Personal history of antineoplastic chemotherapy
CPT/HCPCS: 80053; 85025; G0463; 77290; 77295; 77300; 77334; 77336; 77417; 99204; 99213; 99214

== ENCOUNTER → 2019-12-05 | Outpatient (CLI) | payer MEDICARE, OTHER ==
--- NOTE | 2019-12-05 10:13 | Diagnostic Imaging Report ---
INDICATION: Postmenopausal state COMPARISON: None available FINDINGS: AP Spine L1-L4: [BMD (g/cm2): 0.928] [T-Score: -2.3] [Z-Score: -0.5] [BMD Previous: NA] [BMD % Change: NA] LT Hip Neck: [BMD (g/cm2): 0.669] [T-Score: -2.7] [Z-Score: -0.8] LT Hip Total: [BMD (g/cm2):0.669] [T-Score:-2.7] [Z-Score: -1.0] [BMD Previous: NA] [BMD % Change: NA] RT Hip Neck: [BMD (g/cm2):0.840] [T-Score:-2.9] [Z-Score:-1.0] RT Hip Total: [BMD (g/cm2):0.687] [T-score:-2.5] [Z-Score:-0.8] [BMD Previous:NA] [BMD % Change:NA] *Indicates significant change from prior examination based on 95% confidence level. World Health Organization criteria for BMD interpretation classify patients as Normal (T-score at or above -1.0), Osteopenic (T-score between -1.0 and -2.5) or Osteoporotic (T-score at or below -2.5). LIMITATIONS AND MODIFICATION: None. FRACTURE RISK (FRAX SCORE): The ten year probability of (%): Major Osteoporotic Fracture: [19.6] Hip Fracture: [7.2] IMPRESSION: 1. Osteoporosis. 2. Baseline examination. 3. See below National Osteoporosis Foundation guidelines on when to potentially initiate pharmacologic therapy. Based on the National Osteoporosis Foundation Guidelines, pharmacologic treatment should be initiated in any of the following, unless clinical conditions suggest otherwise: * Any patient with prior fragility fracture of the hip or vertebrae. A spine fracture indicates 5X risk for subsequent spine fracture and 2X risk for subsequent hip fracture. * Osteoporosis (T-score <-2.5). * Postmenopausal women and men age 50 and older with low bone mass/osteopenia (T-score between -1.0 and -2.5) by DXA and 10-year major osteoporotic fracture greater than 20% or a 10-year probability of hip fracture greater than 3%. These fracture risks are supplied above in the FRAX score, if applicable. * Clinician judgement and/or patient preferences may indicate treatment for people with 10-year fracture probabilities above or below these levels. Dictated by: Dictated on workstation # [id number]
== END ==
LOC: RAD 09:15
PROVIDERS: ATTEND Nurse Practitioner Adult Health
DX: M81.0 Age-related osteoporosis without current pathological fracture (principal); Z78.0 Asymptomatic menopausal state
CPT/HCPCS: 77080

== ENCOUNTER 2020-01-31 10:11 | Outpatient (RCR) | payer MEDICARE, OTHER ==
[2019-12-20 15:33] LABS: BASOPHILS # (AUTO) 0.1 10^3/uL (0.0-0.1); BASOPHILS % (AUTO) 1 % (0-10); EOSINOPHILS # (AUTO) 0.2 10^3/uL (0.0-0.3); EOSINOPHILS % (AUTO) 2 % (0-10); HEMATOCRIT 37 % (35-52); HEMOGLOBIN 12.1 g/dL (11.5-16.0); LYMPHOCYTES % (AUTO) 13 % (12-44); MEAN CORPUSCULAR HEMOGLOBIN 31 pg (25-34); MEAN CORPUSCULAR HGB CONC 33 g/dL (32-36); MEAN CORPUSCULAR VOLUME 96 fL (80-99); MEAN PLATELET VOLUME 10.9 fL (9.0-12.2); MONOCYTES # (AUTO) 0.6 10^3/uL (0.0-1.0); MONOCYTES % (AUTO) 8 % (0-12); NEUTROPHILS # (AUTO) 5.8 10^3/uL (1.8-7.8); NEUTROPHILS % (AUTO) 76 % (42-75); PLATELET COUNT 268 10^3/uL (130-400); WHITE BLOOD COUNT 7.6 10^3/uL (4.3-11.0)
[2019-12-20 15:55] LABS: ALANINE AMINOTRANSFERASE 18 U/L (0-55); ALBUMIN 4.3 GM/DL (3.2-4.5); ALKALINE PHOSPHATASE 104 U/L (40-136); BILIRUBIN,TOTAL 0.4 MG/DL (0.1-1.0); BUN/CREATININE RATIO 12; CALCIUM 9.3 MG/DL (8.5-10.1); CARBON DIOXIDE 24 MMOL/L (21-32); CHLORIDE 106 MMOL/L (98-107); CREATININE SERUM 0.89 MG/DL (0.60-1.30); GFR ESTIMATED > 60; GLUCOSE 95 MG/DL (70-105); POTASSIUM 3.6 MMOL/L (3.6-5.0); SODIUM 142 MMOL/L (135-145); TOTAL PROTEIN 6.9 GM/DL (6.4-8.2)
[2020-01-31 10:26] LABS: BASOPHILS # (AUTO) 0.1 10^3/uL (0.0-0.1); BASOPHILS % (AUTO) 1 % (0-10); EOSINOPHILS # (AUTO) 0.3 10^3/uL (0.0-0.3); EOSINOPHILS % (AUTO) 3 % (0-10); HEMATOCRIT 39 % (35-52); HEMOGLOBIN 12.6 g/dL (11.5-16.0); LYMPHOCYTES % (AUTO) 14 % (12-44); MEAN CORPUSCULAR HEMOGLOBIN 31 pg (25-34); MEAN CORPUSCULAR HGB CONC 32 g/dL (32-36); MEAN CORPUSCULAR VOLUME 95 fL (80-99); MEAN PLATELET VOLUME 10.7 fL (9.0-12.2); MONOCYTES # (AUTO) 0.7 10^3/uL (0.0-1.0); MONOCYTES % (AUTO) 9 % (0-12); NEUTROPHILS # (AUTO) 5.5 10^3/uL (1.8-7.8); NEUTROPHILS % (AUTO) 73 % (42-75); PLATELET COUNT 345 10^3/uL (130-400); WHITE BLOOD COUNT 7.6 10^3/uL (4.3-11.0)
[2020-01-31 10:47] LABS: ALBUMIN 4.3 GM/DL (3.2-4.5); BILIRUBIN,TOTAL 0.5 MG/DL (0.1-1.0); CALCIUM 9.7 MG/DL (8.5-10.1); CREATININE SERUM 1.04 MG/DL (0.60-1.30); POTASSIUM 3.9 MMOL/L (3.6-5.0)
== END 2020-02-29 | disposition home or self-care (01) ==
LOC: ONC 10:11
PROVIDERS: ATTEND Internal Medicine Hematology & Oncology
DX: C50.412 Malignant neoplasm of upper-outer quadrant of left female breast (principal); Z85.72 Personal history of non-Hodgkin lymphomas; Z92.21 Personal history of antineoplastic chemotherapy; Z90.12 Acquired absence of left breast and nipple; Z87.310 Personal history of (healed) osteoporosis fracture; Z98.890 Other specified postprocedural states
CPT/HCPCS: 77307; 77334; 77336; 77417; 80053; 82306; 85025; 99213